=== PATIENT | female | born 1995 | race American Indian/Alaskan Native ===

== ENCOUNTER 2019-12-17 09:05 | Emergency (ER) | payer MEDICAID ==
[2019-12-17 09:12] VITALS: BP 119/63
== END 2019-12-17 11:34 | disposition left against medical advice (07) ==
LOC: ED 09:05
DX: K08.89 Other specified disorders of teeth and supporting structures (principal); K13.79 Other lesions of oral mucosa; Z53.21 Procedure and treatment not carried out due to patient leaving prior to being seen by health care provider

== ENCOUNTER 2020-02-06 18:10 | Emergency (ER) | payer MEDICAID ==
[2020-02-06 14:18] LABS: Basophils % (Auto) 0.2 % (0.0-1.8); Eosinophils % (Auto) 0.1 % (0.0-4.3); Hematocrit 33.7 % (30.3-42.9); Hemoglobin 11.6 gm/dl (10.1-14.3); Lymphocytes % (Auto) 13.4 % (13.4-35.0); Mean Corpuscular HGB Conc 34 % (30-34); Mean Corpuscular Volume 93 fl (79-97); Monocytes # (Auto) 0.4 K/mm3 (0.0-0.8); Monocytes % (Auto) 5.4 % (0.0-7.3); Platelet Count 188 K/mm3 (140-440); Red Blood Count 3.63 M/mm3 (3.65-5.03); Red Cell Distribution Width 14.2 % (13.2-15.2)
[2020-02-06 14:39] LABS: Blood Urea Nitrogen 6 mg/dL (7-17); Calcium 9.3 mg/dL (8.4-10.2); Hemolysis Index 4
[2020-02-06 14:45] LABS: BUN/Creatinine Ratio 15
[2020-02-06 15:02] LABS: Bilirubin,Urine NEG (Negative); Blood,Urine NEG (Negative); Color,Urine Yellow (Yellow); Mucus,Urine 3+ /HPF; Protein,Urine <15 mg/dL mg/dL (Negative); Urobilinogen,Urine < 2.0 mg/dL (<2.0)
--- NOTE | 2020-02-06 16:12 | Emergency Department Report ---
ED General Adult HPI - General Chief complaint: Abdominal Pain Stated complaint: CRAMPING/POSSIBLE PUI?: No Time Seen by Provider: 02/06/20 15:48 Source: patient Mode of arrival: Ambulatory Limitations: No Limitations - History of Present Illness Initial comments: 24-year-old female presenting with chief complaint of abdominal cramping for the past few days. She states that she has not had a cycle since August but states that she is usually irregular. She states taking a test yesterday that is positive. Denies any vaginal bleeding currently. Denies any other associated symptoms. Cramping is mild in nature, no alleviating or exacerbating factors. - Related Data Allergies Allergy/AdvReac Type Severity Reaction Status Date / Time ibuprofen Allergy Swelling Verified 10/28/19 02:49 tramadol Allergy Swelling Verified 10/28/19 02:49 ED Review of Systems ROS: Stated complaint: CRAMPING/POSSIBLE Other details as noted in HPI Comment: All other systems reviewed and negative Gastrointestinal: as per HPI ED Past Medical Hx - Past Medical History Previous Medical History?: No - Surgical History Past Surgical History?: Yes Additional Surgical History: 2 c-sections - Social History Smoking Status: Never Smoker Substance Use Type: None ED Physical Exam - General Limitations: No Limitations General appearance: alert, in no apparent distress - Head Head exam: Present: atraumatic, normocephalic - Eye Eye exam: Present: normal appearance - ENT ENT exam: Present: mucous membranes moist - Neck Neck exam: Present: normal inspection - Respiratory Respiratory exam: Present: normal lung sounds bilaterally. Absent: respiratory distress - Cardiovascular Cardiovascular Exam: Present: regular rate, normal rhythm. Absent: systolic murmur, diastolic murmur, rubs, gallop - GI/Abdominal GI/Abdominal exam: Present: soft, distended (Gravid), normal bowel sounds. Absent: tenderness, guarding, rebound - Extremities Exam Extremities exam: Present: normal inspection - Back Exam Back exam: Present: normal inspection - Neurological Exam Neurological exam: Present: alert, oriented X3 - Psychiatric Psychiatric exam: Present: normal affect, normal mood - Skin Skin exam: Present: warm, dry, intact, normal color. Absent: rash ED Course Vital Signs 02/06/20 02/06/20 02/06/20 13:59 16:11 17:02 Temperature 98.6 F 97.5 F L 98.3 F Pulse Rate 69 63 63 Respiratory 20 14 14 Rate Blood Pressure 119/61 120/54 Blood Pressure 120/54 [Left] O2 Sat by Pulse 100 100 100 Oximetry ED Medical Decision Making - Lab Data Result diagrams: 02/06/20 14:06 02/06/20 14:06 - Radiology Data 20-week without acute abnormalities - Medical Decision Making Patient presenting with abdominal cramping and possible . On my exam the abdomen is gravid above the umbilicus, rapid bedside ultrasound was performed showing advanced greater than 20 weeks with normal heart tones. I consulted with labor and delivery who request a formal ultrasound prior to transfer there. Ultrasound does show a 20+ week , patient was to be transferred to L&D but got a phone call about her emergency at home and had to leave. She does understand the risks of leaving and left AMA and signed paperwork. All risks were discussed. - Differential Diagnosis , labor, UTI Critical care attestation.: If time is entered above; I have spent that time in minutes in the direct care of this critically ill patient, excluding procedure time. ED Disposition Clinical Impression: Second trimester Disposition: [id number] LEFT AGAINST MED ADVICE Is pt being admited?: No Condition: Stable Instructions: Abdominal Pain (ED) Referrals: PRIMARY CARE, [Primary Care Provider] - 3-5 Days Forms: AMA Form Time of Disposition: 18:20
[2020-02-06 17:02] VITALS: BP 120/54
--- NOTE | 2020-02-06 18:04 | Ultrasound Report ---
ULTRASOUND OBSTETRIC COMPLETE INDICATION / CLINICAL INFORMATION: Pelvic pain, spotting. Clinical Gestational Age (GA) in weeks.days: 26.1 TECHNIQUE: Transabdominal and Transvaginal. COMPARISON: None available. FINDINGS: NUMBER: Single PRESENTATION: transverse PLACENTA: posterofundal and free of the os. MATERNAL ADNEXA: No significant abnormality. AMNIOTIC FLUID VOLUME: normal AMNIOTIC FLUID INDEX (NOVA) in cm (if measured): Not measured. ANATOMY: organs (including the bladder, stomach, kidneys, heart, umbilical cord, diaphragm, cord inserti on, spine and intracranial structures) are visualized and show no significant abnormality with the fo llowing exception(s): None. MEASUREMENTS: - Biparietal Diameter = 4.6 cm = 20.0 weeks.days - Head Circumference = 17.6 cm = 20.0 weeks.days - Abdominal Circumference = 15.4 cm = 20.4 weeks.days - Femur Length = 3.3 cm = 20.2 weeks.days - Estimated Weight (in grams, if calculated): 352 g - Heart Rate (beats per minute): 152 ADDITIONAL FINDINGS: None. PERCENTILE ESTIMATED WEIGHT (if calculated): Not calculated. AVERAGE ULTRASOUND AGE (AUA) in weeks.days = 20.2 IMPRESSION: 1. Single intrauterine with AUA of 20.2 weeks.days 2. No significant sonographic abnormality. Signer Name: Milton Walls MD Signed: 02/06/2020 5:59 PM Workstation Name: [id number]
== END 2020-02-06 18:14 | disposition left against medical advice (07) ==
LOC: LDOR 18:10
DX: O26.852 Spotting complicating pregnancy, second trimester (principal); O26.892 Other specified pregnancy related conditions, second trimester; R10.2 Pelvic and perineal pain; Z3A.20 20 weeks gestation of pregnancy
CPT/HCPCS: 36415; 76805; 76817; 80048; 81001; 84702; 85025

== ENCOUNTER 2020-03-31 02:37 | Emergency (ER) | payer MEDICAID ==
[2020-03-31 02:58] VITALS: BP 110/64
== END 2020-03-31 08:47 | disposition left against medical advice (07) ==
LOC: ED 02:37
DX: K08.89 Other specified disorders of teeth and supporting structures (principal); Z53.21 Procedure and treatment not carried out due to patient leaving prior to being seen by health care provider

== ENCOUNTER 2020-04-03 13:46 | Outpatient (CLI) | payer MEDICAID ==
[2020-04-03 14:11] VITALS: BP 121/67
[2020-04-03] MEDS ORDERED: LACTATED RINGERS 1,000 ML IV ONE (14:26)
[2020-04-03] MEDS ORDERED: LACTATED RINGERS 1,000 ML ONE (14:35)
[2020-04-03] MEDS: TERBUTALINE 1 MG/1 ML INJ SUB-Q SCH ×2 (15:21→15:56)
--- NOTE | 2020-04-03 15:42 | Ultrasound Report ---
US OB follow up INDICATION / CLINICAL INFORMATION: bpp/joan/ gestational age. placenta. COMPARISON: 02/06/2020 FINDINGS: AMNIOTIC FLUID INDEX (cm) = 20.5 cm PRESENTATION: Cephalic. Examination is not tailored to evaluate detailed anatomy. MEASUREMENTS: - Biparietal Diameter = 6.93 cm = 27 weeks 6 days - Head Circumference = 26.0 cm = 28 weeks 2 days - Abdominal Circumference = 23.6 cm = 27 weeks 6 days - Femur Length = 5.1 cm = 27 weeks 3 days Total AUA: 27 weeks 6 days - Estimated Weight (in grams, if calculated): 1124 g +/- 166 g - Heart Rate (beats per minute): 143 Anterior placenta is within normal limits. IMPRESSION: 1. Single intrauterine with AUA of 27 weeks 6 days. 2. No significant sonographic abnormality. Signer Name: Home Celis MD Signed: 04/03/2020 3:38 PM Workstation Name: [id number]
[2020-04-03] MEDS ORDERED: LACTATED RINGERS 1,000 ML IV SCH (16:00)
[2020-04-03] MEDS ORDERED: diphenhydrAMINE 50 MG/ML VIAL IM ONE (16:00)
[2020-04-03] MEDS ORDERED: ONDANSETRON 4 MG/2 ML INJ IV PRN (16:28)
[2020-04-03] MEDS ORDERED: MORPHINE 10 MG/1 ML INJ IM ONE (16:49)
== END 2020-04-03 18:00 | disposition home or self-care (01) ==
LOC: TRG 13:46 → APU 13:46 → TRG 18:00
PROVIDERS: ATTEND Obstetrics & Gynecology
DX: O62.9 Abnormality of forces of labor, unspecified (principal); J45.909 Unspecified asthma, uncomplicated; F53.0 Postpartum depression; Z3A.31 31 weeks gestation of pregnancy
CPT/HCPCS: 59025; 76816; 96361; 96365; 96366; 96372; J1200; J2270; J2405; J3105; J7120; 96360

== ENCOUNTER 2020-04-23 10:32 | Outpatient (CLI) | payer MEDICAID ==
[2020-04-23] MEDS ORDERED: LACTATED RINGERS 1,000 ML ONE (11:05)
[2020-04-23] MEDS ORDERED: TERBUTALINE 1 MG/1 ML INJ ONE (11:06)
[2020-04-23] MEDS ORDERED: LACTATED RINGERS 1,000 ML IV SCH ×2 (11:15→13:00)
[2020-04-23 11:38] LABS: Bilirubin,Urine NEG (Negative); Blood,Urine NEG (Negative); Color,Urine Yellow (Yellow); Mucus,Urine FEW /HPF; Urobilinogen,Urine < 2.0 mg/dL (<2.0)
[2020-04-23] MEDS ORDERED: TERBUTALINE 1 MG/1 ML INJ SUB-Q SCH (12:00)
[2020-04-23 12:10] VITALS: BP 134/87
[2020-04-23] MEDS ORDERED: ACETAMINOPHEN 325 MG TAB PO PRN ×2 (12:34→12:48)
[2020-04-23] MEDS ORDERED: DOCUSATE SODIUM 100 MG CAP PO PRN (12:34)
[2020-04-23] MEDS ORDERED: MAGNESIUM HYDROXIDE (MOM) ORAL LIQD UDC PO PRN (12:34)
[2020-04-23] MEDS ORDERED: ONDANSETRON 4 MG/2 ML INJ IV PRN (12:34)
[2020-04-23] MEDS ORDERED: ALUM-MAG HYDROXIDE-SIMETHICONE 200-200-20MG/5ML ORAL LIQD 30 ML PO PRN (12:34)
--- NOTE | 2020-04-23 12:43 | History and Physical Report ---
History of Present Illness Date of examination: 04/23/20 (Pt having ctxs and abdominal pain) Date of admission: 04/23/2020 Chief complaint: My stomach hurts. History of present illness: Pt presents to triage with c/o abdominal pain. States that she was told that she is 34-36 weeks gestation. By u/s performed on 02/06/2020 pt is actually 31.2 days today. On 02/06/2020 by u/s she was 20.2 wks gestation. Past History Past Medical History: no pertinent history Past Surgical History: section ( X 2.) Family/Genetic History: none Social history: no significant social history - Obstetrical History Expected Date of Delivery: 06/23/20 Actual Gestation: 31 Week(s) 2 Day(s) : 3 Para: 2 Hx # Term Pregnancies: 2 Number of Pregnancies: 0 Spontaneous Abortions: 0 Induced : 0 Number of Living Children: 2 Medications and Allergies Allergies Allergy/AdvReac Type Severity Reaction Status Date / Time codeine Allergy Swelling Verified 03/31/20 03:06 ibuprofen Allergy Swelling Verified 10/28/19 02:49 tramadol Allergy Swelling Verified 10/28/19 02:49 Latex, Natural Rubber AdvReac Anaphylaxis Verified 04/23/20 12:57 Active Meds: Active Medications Acetaminophen (Acetaminophen 500 Mg Tab) 1,000 mg PO ONCE ONE Stop: 04/23/20 13:01 Acetaminophen (Acetaminophen 325 Mg Tab) 650 mg PO Q4H PRN PRN Reason: Pain MILD(1-3)/Fever >100.5/FLORES Al Hydrox/Mg Hydrox/Simethicone (Alum-Mag Hydroxide-Simethicone 628-579-29tt/5ml Oral Liqd 30 Ml) 30 ml PO Q6H PRN PRN Reason: Indigestion Betamethasone Acet/Betameth SodPhos (Betamet Acet/Betamet Na Ph 6 Mg/Ml Inj 5 Ml Mdv) 12 mg IM Q24HR SINGH Stop: 04/24/20 10:01 Docusate Sodium (Docusate Sodium 100 Mg Cap) 100 mg PO Q12H PRN PRN Reason: Constipation Lactated Ringer's (Lactated Ringers) 1,000 mls @ 125 mls/hr IV DIRECT SINGH Lactated Ringer's (Lactated Ringers) 1,000 mls @ 125 mls/hr IV DIRECT [facility] Magnesium Hydroxide (Magnesium Hydroxide (Mom) Oral Liqd Udc) 30 ml PO QHS PRN PRN Reason: Laxative Effect Multivitamins/Iron/Calcium ( [id number]-Mb Fumarate-Folic Acid Vit Tab) 1 each PO QDAY [facility] Ondansetron HCl (Ondansetron 4 Mg/2 Ml Inj) 4 mg IV Q6H PRN PRN Reason: Nausea And Vomiting Terbutaline Sulfate (Terbutaline 1 Mg/1 Ml Inj) 0.25 mg SUB-Q Q20MIN [facility] Stop: 04/25/20 12:01 Review of Systems All systems: negative - Vital Signs Vital signs: Vital Signs Pulse Pulse Ox 62 99 04/23/20 10:54 04/23/20 10:54 Temp Pulse Resp BP Pulse Ox 98.2 F 61 20 134/87 98 04/23/20 12:26 04/23/20 12:37 04/23/20 12:26 04/23/20 12:26 04/23/20 12:37 - Physical Exam Breasts: Positive: deferred Cardiovascular: Regular rate Lungs: Positive: Normal air movement Abdomen: Positive: normal appearance, soft Genitourinary (Female): Positive: normal external genitalia, normal perenium Vulva: both: normal Vagina: Positive: normal moisture. Negative: discharge Cervix: Negative: lesion, discharge Uterus: Positive: normal size, normal contour Adnexa: both: normal Anus/Rectum: Positive: normal perianal skin, heme negative. Negative: rectal mass, hemorrhoids Extremities: Positive: normal Deep Tendon Reflex Grade: Normal +2 - Obstetrical FHR: category 1 Uterine Contraction Monitor Mode: External Cervical Dilatation: 1 (1 cm per triage nurse) Uterine Contraction Pattern: Regular Uterine Tone Measurement Phase: Resting Uterine Contraction Intensity: Mild Results Abnormal lab results 04/23/20 Range/Units Unknown Ur Specific [place] 1.044 H (1.003-1.030) U Epithel Cells (Auto) 67.0 H (0-13.0) /HPF All other labs normal. labs drawn on admission. Assessment and Plan A: 24 y.o. @ 31.2 wks, based off u/s completed on 02/06/2020 in the ER. No care. P: Admit to labor and delivery for labor. Start magnesium infusion for neuro-protection. Clear liquid diet. Steroids for lung maturity. IV fluid bolus for hydration. - Patient Problems (1) 31 to 32 weeks gestation of Onset Date: ~04/23/20 Current Visit: Yes Status: Acute Plan to address problem: Continuous EFM ordered. (2) No care in current Onset Date: ~04/23/20 Current Visit: Yes Status: Acute Plan to address problem: Case management order placed d/t no care. (3) labor in third trimester Onset Date: ~04/23/20 Current Visit: Yes Status: Acute (4) Previous section Current Visit: Yes Status: Acute Plan to address problem: Monitor for s/sx of worsening labor. Will be repeat if change in labor status.
[2020-04-23] MEDS ORDERED: BUTORPHANOL 2 MG/1 ML INJ IV ONE ×2 (12:45)
[2020-04-23] MEDS ORDERED: ACETAMINOPHEN 500 MG TAB PO ONE (13:00)
[2020-04-23] MEDS ORDERED: MAGNESIUM SULFATE 4 GM/100 ML BAG IV ONE (13:42)
[2020-04-23] MEDS ORDERED: MAGNESIUM SULFATE 40GM/1000ML 40 GM/1,000 ML BAG IV SCH (14:00)
[2020-04-23] MEDS ORDERED: BETAMET ACET/BETAMET NA PH 6 MG/ML INJ 5 ML MDV IM SCH (14:00)
--- NOTE | 2020-04-23 14:37 | Event Note ---
Date: 04/23/20 (Pt eloped. ) Received a call from Aaliyah ROMEO stating that patient had to leave because she had no nurse sitter for her children. Pt has just received a dose of IV pain medication per the RN. When RN discussed with patient that she could not leave at this time d/t needing monitoring after pain medication, she stated once again that she had to leave because she needed to see about her other children. Came to speak with the patient and found the room empty. Charge nurse stated that the patient had walked out before she had a chance to go and speak with the patient. Updated Dr. Cabrera on patient elopement.
[2020-04-23 16:18] LABS: Amphetamine Screen,Urine Negative; Benzodiazepines Screen,Urine Negative; Cocaine Screen,Urine Negative; Methadone Screen,Urine Negative
[2020-04-23 16:43] LABS: Cannabinoid Screen,Urine Positive; Opiate Screen,Urine Positive
[2020-04-24] MEDS ORDERED: PRENATAL VIT27-FE FUMARATE-FOLIC ACID VIT TAB PO SCH (10:00)
== END 2020-04-23 15:09 | disposition left against medical advice (07) ==
LOC: TRG 10:32 → APU 10:33 → LD 15:06 → TRG 15:09
PROVIDERS: ATTEND Obstetrics & Gynecology
DX: O62.9 Abnormality of forces of labor, unspecified (principal); O99.513 Diseases of the respiratory system complicating pregnancy, third trimester; J45.909 Unspecified asthma, uncomplicated; Z3A.34 34 weeks gestation of pregnancy
CPT/HCPCS: 80307; 81001; 96361; 96372; 96374; J0595; J0702; J7120

== ENCOUNTER 2020-04-26 17:34 | Emergency (ER) | payer MEDICAID ==
[2020-04-26 17:56] VITALS: BP 121/63
--- NOTE | 2020-04-26 18:34 | Emergency Department Report ---
ED ENT HPI - General Chief complaint: Dental/Oral Stated complaint: TOOTH PAIN,CHEST PAIN Time Seen by Provider: 04/26/20 18:27 Source: patient Mode of arrival: Ambulatory Limitations: No Limitations - History of Present Illness Initial comments: Patient is a 24-year-old female presents emergency room with complaints of left lower dental pain that began 5 days ago. She states that she last saw a dentist a few months ago and was advised that she needs to have her wisdom teeth removed. She is currently 32 weeks and states that she is going to a clinic for [facility] care. She denies any fever, chills, vomiting, facial swelling, difficulty swallowing, difficulty breathing. No past medical history. Allergy to codeine, ibuprofen, tramadol, latex, natural rubber. - Related Data Previous Rx's Medication Instructions Recorded Last Taken Type Chlorhexidine Mouthwash [Peridex] 15 ml MM BID #1 bottle 04/26/20 Unknown Rx Penicillin Vk [Veetids TAB] 500 mg PO QID 7 Days #56 tablet 04/26/20 Unknown Rx Allergies Allergy/AdvReac Type Severity Reaction Status Date / Time codeine Allergy Swelling Verified 03/31/20 03:06 ibuprofen Allergy Swelling Verified 04/26/20 17:52 tramadol Allergy Swelling Verified 04/26/20 17:52 Latex, Natural Rubber AdvReac Anaphylaxis Verified 04/26/20 17:52 ED Dental HPI - General Chief complaint: Dental/Oral Stated complaint: TOOTH PAIN,CHEST PAIN Time Seen by Provider: 04/26/20 18:27 Source: patient Mode of arrival: Ambulatory Limitations: No Limitations - Related Data Previous Rx's Medication Instructions Recorded Last Taken Type Chlorhexidine Mouthwash [Peridex] 15 ml MM BID #1 bottle 04/26/20 Unknown Rx Penicillin Vk [Veetids TAB] 500 mg PO QID 7 Days #56 tablet 04/26/20 Unknown Rx Allergies Allergy/AdvReac Type Severity Reaction Status Date / Time codeine Allergy Swelling Verified 03/31/20 03:06 ibuprofen Allergy Swelling Verified 04/26/20 17:52 tramadol Allergy Swelling Verified 04/26/20 17:52 Latex, Natural Rubber AdvReac Anaphylaxis Verified 04/26/20 17:52 ED Review of Systems ROS: Stated complaint: TOOTH PAIN,CHEST PAIN Other details as noted in HPI Comment: All other systems reviewed and negative ED Past Medical Hx - Past Medical History Previous Medical History?: No Hx Hypertension: No Hx Diabetes: No Hx Deep Vein Thrombosis: No Hx Renal Disease: No Hx Sickle Cell Disease: No Hx Seizures: No Hx Asthma: Yes Hx HIV: No - Surgical History Additional Surgical History: 2 c-sections - Social History Smoking Status: Never Smoker - Medications Home Medications: Home Medications Medication Instructions Recorded Confirmed Last Taken Type Chlorhexidine Mouthwash [Peridex] 15 ml MM BID #1 bottle 04/26/20 Unknown Rx Penicillin Vk [Veetids TAB] 500 mg PO QID 7 Days #56 tablet 04/26/20 Unknown Rx ED Physical Exam - General Limitations: No Limitations General appearance: alert, in no apparent distress - Head Head exam: Present: atraumatic, normocephalic - Eye Eye exam: Present: normal appearance - ENT ENT exam: Present: normal orophraynx, mucous membranes moist, other (there are a couple of dental carries present, there is a left lower impacted wisdom tooth, there is erythema and hypertrophy of the left lower gums, no induration, no fluctuance, no facial edema, uvula is midline, no uvular edema or deviation, no trismus, no muffled voice, no tongue elevation) - Respiratory Respiratory exam: Absent: respiratory distress, accessory muscle use - Neurological Exam Neurological exam: Present: alert, oriented X3 - Psychiatric Psychiatric exam: Present: normal affect, normal mood - Skin Skin exam: Present: warm, dry, intact ED Course Vital Signs 04/26/20 17:55 Temperature 98.0 F Pulse Rate 75 Respiratory 18 Rate Blood Pressure 121/63 O2 Sat by Pulse 98 Oximetry ED Medical Decision Making - Medical Decision Making Patient is a 24-year-old female presents emergency room with complaints of left lower dental pain that began 5 days ago. She states that she last saw a dentist a few months ago and was advised that she needs to have her wisdom teeth removed. She is currently 32 weeks and states that she is going to a clinic for [facility] care. She denies any fever, chills, vomiting, facial swelling, difficulty swallowing, difficulty breathing. No past medical history. Allergy to codeine, ibuprofen, tramadol, latex, natural rubber. vitals are normal. on exam: there are a couple of dental carries present, there is a left lower impacted wisdom tooth, there is erythema and hypertrophy of the left lower gums, no induration, no fluctuance, no facial edema, uvula is midline, no uvular edema or deviation, no trismus, no muffled voice, no tongue elevation. Examination appears consistent with dental caries, impacted wisdom tooth, gingivitis. No signs of dental abscess, facial abscess/cellulitis, [place]. Patient given prescription for penicillin VK and chlorhexidine mouthwash. Advised patient Please take medication as prescribed. May take Tylenol as needed for discomfort. Follow-up with a dentist. Is very importantly follow- up. Return to emergency room for new or worsening symptoms. Critical care attestation.: If time is entered above; I have spent that time in minutes in the direct care of this critically ill patient, excluding procedure time. ED Disposition Clinical Impression: Dental caries, Gingivitis Disposition: TO HOME OR SELFCARE Is pt being admited?: No Does the pt Need Aspirin: No Condition: Stable Additional Instructions: Please take medication as prescribed. May take Tylenol as needed for discomfort. Follow-up with a dentist. Is very importantly follow-up. Return to emergency room for new or worsening symptoms. Prescriptions: Chlorhexidine Mouthwash [Peridex] 15 ml MM BID #1 bottle Penicillin Vk [Veetids TAB] 500 mg PO QID 7 Days #56 tablet Referrals: PRIMARY CARE, [Primary Care Provider] - 2-3 Days [facility] [Outside] - 2-3 Days [facility] [Outside] - 2-3 Days Time of Disposition: 18:37 Print Language: KINYARWANDA
== END 2020-04-26 18:52 | disposition home or self-care (01) ==
LOC: ED 17:34
DX: O99.613 Diseases of the digestive system complicating pregnancy, third trimester (principal); K02.9 Dental caries, unspecified; K05.10 Chronic gingivitis, plaque induced; J45.909 Unspecified asthma, uncomplicated; Z3A.32 32 weeks gestation of pregnancy; Z98.890 Other specified postprocedural states; Z79.2 Long term (current) use of antibiotics; Z79.899 Other long term (current) drug therapy; Z91.040 Latex allergy status; Z88.8 Allergy status to other drugs, medicaments and biological substances
CPT/HCPCS: 99282

== ENCOUNTER 2020-05-07 09:00 | Emergency (ER) | payer MEDICAID ==
[2020-05-07 09:09] VITALS: BP 121/85
[2020-05-07] MEDS ORDERED: oxyCODONE /ACETAMINOPHEN 5-325MG TAB PO ONE (09:19)
[2020-05-07] MEDS ORDERED: ONDANSETRON 4 MG ODT TAB PO ONE (09:19)
[2020-05-07] MEDS ORDERED: MORPHINE 4 MG/1 ML INJ IM ONE (09:19)
--- NOTE | 2020-05-07 09:25 | Emergency Department Report ---
ED Abdominal Pain HPI - General Chief Complaint: Abdominal Pain Stated Complaint: INCISION PAIN PUI?: No Time Seen by Provider: 05/07/20 09:11 Source: patient Mode of arrival: Ambulatory Limitations: No Limitations - History of Present Illness Initial Comments: Chief complaint: I just been hurting. Any pain medicine. The ankles are swelling. HPI this is a 24-year-old female with history of asthma who delivered via C- section on 7 days ago. She is having pain at the incision site. She has used all of her Percocet prescription which helped her postoperative pain. She is unable to follow-up until Sunday. She alerted ibuprofen. She denies headache patient has fever. Denies cough. No shortness of breath. She denies upper abdominal pain. She delivered at 35 weeks. She is stressed because her son is in NICU. MD Complaint: abdominal pain -: Gradual (Since ) Location: suprapubic (At the site of her incision) Severity: severe Severity scale (0 -10): 10 Quality: aching Consistency: constant Improves With: other (Abdominal pain) Worsens With: movement Associated Symptoms: other (Ankle swelling) - Related Data Home Medications Medication Instructions Recorded Confirmed Last Taken One Daily Tablet 1 tab PO DAILY 04/30/20 04/30/20 04/29/20 08:00 1 Previous Rx's Medication Instructions Recorded Last Taken Type Ibuprofen [Motrin] 600 mg PO Q8H PRN #60 tablet 05/01/20 Unknown Rx oxyCODONE /ACETAMINOPHEN [Percocet 1 tab PO Q6HR PRN #20 tablet 05/01/20 Unknown Rx 5/325] oxyCODONE /ACETAMINOPHEN [Percocet 1 tab PO Q6HR PRN #20 tablet 05/07/20 Unknown Rx 5/325] Allergies Allergy/AdvReac Type Severity Reaction Status Date / Time codeine Allergy Swelling Verified 03/31/20 03:06 ibuprofen Allergy Swelling Verified 04/26/20 17:52 tramadol Allergy Swelling Verified 04/26/20 17:52 Latex, Natural Rubber AdvReac Anaphylaxis Verified 04/26/20 17:52 ED Review of Systems ROS: Stated complaint: INCISION PAIN Other details as noted in HPI Comment: All other systems reviewed and negative Constitutional: denies: fever, malaise Respiratory: denies: cough, SOB with exertion Cardiovascular: denies: chest pain Gastrointestinal: abdominal pain. denies: nausea, vomiting ED Past Medical Hx - Past Medical History Previous Medical History?: No Hx Hypertension: No Hx Congestive Heart Failure: No Hx Diabetes: No Hx Deep Vein Thrombosis: No Hx Renal Disease: No Hx Sickle Cell Disease: No Hx Seizures: No Hx Asthma: Yes Hx COPD: No Hx HIV: No - Surgical History Past Surgical History?: Yes Additional Surgical History: 3 c-sections - Social History Smoking Status: Never Smoker - Medications Home Medications: Home Medications Medication Instructions Recorded Confirmed Last Taken Type One Daily Tablet 1 tab PO DAILY 04/30/20 04/30/20 04/29/20 08:00 History 1 Ibuprofen [Motrin] 600 mg PO Q8H PRN #60 tablet 05/01/20 Unknown Rx oxyCODONE /ACETAMINOPHEN [Percocet 1 tab PO Q6HR PRN #20 tablet 05/01/20 Unknown Rx 5/325] oxyCODONE /ACETAMINOPHEN [Percocet 1 tab PO Q6HR PRN #20 tablet 05/07/20 Unknown Rx 5/325] ED Physical Exam - General Limitations: No Limitations General appearance: alert, in no apparent distress, other (Walks gingerly in order to avoid discomfort) - Head Head exam: Present: atraumatic, normocephalic - Eye Eye exam: Present: normal appearance - ENT ENT exam: Present: mucous membranes moist - Neck Neck exam: Present: normal inspection, full ROM - Respiratory Respiratory exam: Present: normal lung sounds bilaterally. Absent: respiratory distress, wheezes, rales, rhonchi - Cardiovascular Cardiovascular Exam: Present: regular rate, normal rhythm, normal heart sounds. Absent: systolic murmur, diastolic murmur, rubs, gallop - GI/Abdominal GI/Abdominal exam: Present: soft, normal bowel sounds, other ( site incision: Clean dry intact Steri-Strips in place no erythema no discharge). Absent: distended, tenderness, guarding, rebound - Extremities Exam Extremities exam: Present: normal inspection, other (No lower extremity edema appreciated) - Back Exam Back exam: Present: normal inspection - Neurological Exam Neurological exam: Present: alert, oriented X3 - Psychiatric Psychiatric exam: Present: normal affect, normal mood - Skin Skin exam: Present: warm, dry, intact, normal color. Absent: rash ED Course Vital Signs 05/07/20 09:05 Temperature 97.9 F Pulse Rate 77 Respiratory 16 Rate Blood Pressure 121/85 [Left] O2 Sat by Pulse 99 Oximetry ED Medical Decision Making - Medical Decision Making 1. Postoperative pain: No indication of wound infection or dehiscence, no evidence of peritonitis. Patient confirms as this is the same type of pain that she had since . I have provided Percocet 20 tablets prescription. She has postoperative follow-up on Sunday. 2. Patient reports bilateral ankle foot swelling. I do not see any significant edema on exam. I encouraged her to walk as often as possible. Also encouraged lower extremity elevation. Critical care attestation.: If time is entered above; I have spent that time in minutes in the direct care of this critically ill patient, excluding procedure time. ED Disposition Clinical Impression: Postoperative pain, History of section, Edema of both lower extremities Disposition: - TO HOME OR SELFCARE Is pt being admited?: No Does the pt Need Aspirin: No Condition: Stable Instructions: Abdominal Pain (ED) Additional Instructions: Please return to the emergency department if you develop fever, drainage, vomiting, orv severe pain. Prescriptions: oxyCODONE /ACETAMINOPHEN [Percocet 5/325] 1 tab PO Q6HR PRN #20 tablet PRN Reason: Pain
== END 2020-05-07 10:04 | disposition home or self-care (01) ==
LOC: ED 09:00
DX: G89.18 Other acute postprocedural pain (principal); R60.9 Edema, unspecified; Z98.890 Other specified postprocedural states; Z79.1 Long term (current) use of non-steroidal anti-inflammatories (NSAID); Z79.899 Other long term (current) drug therapy; Z91.040 Latex allergy status; Z88.8 Allergy status to other drugs, medicaments and biological substances
CPT/HCPCS: 96372; 99282; J2270; Q0162

== ENCOUNTER 2020-05-13 11:55 | Emergency (ER) | payer MEDICAID ==
[2020-05-13 12:07] VITALS: BP 120/66
[2020-05-13] MEDS ORDERED: ONDANSETRON 4 MG/2 ML INJ IV ONE (12:21)
[2020-05-13] MEDS ORDERED: MORPHINE 4 MG/1 ML INJ IV ONE (12:21)
[2020-05-13] MEDS ORDERED: SODIUM CHLORIDE 0.9% 1000 ML 1,000 ML IV ONE (12:21)
[2020-05-13] MEDS ORDERED: KETOROLAC 30 MG/1 ML INJ IV ONE (12:21)
--- NOTE | 2020-05-13 12:58 | Emergency Department Report ---
ED Abdominal Pain HPI - General Chief Complaint: Abdominal Pain Stated Complaint: ABDOMINAL PAIN; C SECTION 04/30 Time Seen by Provider: 05/13/20 12:14 Source: patient Mode of arrival: Ambulatory Limitations: No Limitations - History of Present Illness Initial Comments: Patient is a 24-year-old female who presents emergency room with complaints of pain after a on 04/30/2020. She states this is her third . She states her [facility] group is [facility]. She was evaluated in the emergency department on 05/07/2019 secondary to pain and was evaluated at that time and given a prescription for pain medication. She states that she completed the baking medication but continues to have pain. He states that she saw her [facility] group on 05/10/2019 and saw the roof promenade tile setter at that time and was advised that her C- section incision appeared normal. She states that she has pain at the site and abdominal pain. She states that she still has vaginal bleeding but it has significantly decreased and is now just spotting. She denies any fever, nausea, vomiting, diarrhea, abnormal vaginal discharge. She states that she had a normal bowel movement yesterday, she denies any melena or hematochezia. She denies any urinary symptoms. No past medical history. No allergies to medications. - Related Data Home Medications Medication Instructions Recorded Confirmed Last Taken One Daily Tablet 1 tab PO DAILY 04/30/20 04/30/20 04/29/20 08:00 1 Previous Rx's Medication Instructions Recorded Last Taken Type Ibuprofen [Motrin] 600 mg PO Q8H PRN #60 tablet 05/01/20 Unknown Rx oxyCODONE /ACETAMINOPHEN [Percocet 1 tab PO Q6HR PRN #20 tablet 05/01/20 Unknown Rx 5/325] oxyCODONE /ACETAMINOPHEN [Percocet 1 tab PO Q6HR PRN #20 tablet 05/07/20 Unknown Rx 5/325] Allergies Allergy/AdvReac Type Severity Reaction Status Date / Time codeine Allergy Swelling Verified 05/13/20 12:04 ibuprofen Allergy Swelling Verified 05/13/20 12:04 tramadol Allergy Swelling Verified 05/13/20 12:04 Latex, Natural Rubber AdvReac Anaphylaxis Verified 05/13/20 12:04 ED Review of Systems ROS: Stated complaint: ABDOMINAL PAIN; C SECTION 04/30 Other details as noted in HPI Comment: All other systems reviewed and negative ED Past Medical Hx - Past Medical History Hx Hypertension: No Hx Congestive Heart Failure: No Hx Diabetes: No Hx Deep Vein Thrombosis: No Hx Renal Disease: No Hx Sickle Cell Disease: No Hx Seizures: No Hx Asthma: Yes Hx COPD: No Hx HIV: No - Surgical History Additional Surgical History: 3 c-sections - Social History Smoking Status: Never Smoker - Medications Home Medications: Home Medications Medication Instructions Recorded Confirmed Last Taken Type One Daily Tablet 1 tab PO DAILY 04/30/20 04/30/20 04/29/20 08:00 History 1 Ibuprofen [Motrin] 600 mg PO Q8H PRN #60 tablet 05/01/20 Unknown Rx oxyCODONE /ACETAMINOPHEN [Percocet 1 tab PO Q6HR PRN #20 tablet 05/01/20 Unknown Rx 5/325] oxyCODONE /ACETAMINOPHEN [Percocet 1 tab PO Q6HR PRN #20 tablet 05/07/20 Unknown Rx 5/325] ED Physical Exam - General Limitations: No Limitations General appearance: alert, in no apparent distress - Head Head exam: Present: atraumatic, normocephalic - Eye Eye exam: Present: normal appearance - ENT ENT exam: Present: mucous membranes moist - Respiratory Respiratory exam: Present: normal lung sounds bilaterally. Absent: respiratory distress, wheezes, rales, rhonchi, stridor, chest wall tenderness, accessory muscle use, decreased breath sounds, prolonged expiratory - Cardiovascular Cardiovascular Exam: Present: regular rate, normal rhythm, normal heart sounds. Absent: systolic murmur, diastolic murmur, rubs, gallop - GI/Abdominal GI/Abdominal exam: Present: soft, tenderness (inferior to the umbilicus and overlying the incision site), normal bowel sounds, other (there are steri strips in place overlying a horizontal incision, incision appears clean, dry, intact, no signs of infection no wound dehescience). Absent: distended, guard ing, rebound, rigid - Neurological Exam Neurological exam: Present: alert, oriented X3 - Psychiatric Psychiatric exam: Present: normal affect, normal mood - Skin Skin exam: Present: warm, dry, intact ED Course Vital Signs 05/13/20 05/13/20 05/13/20 12:06 13:08 14:05 Temperature 97.6 F Pulse Rate 75 Respiratory 16 18 18 Rate Blood Pressure 120/66 O2 Sat by Pulse 100 100 Oximetry ED Medical Decision Making - Lab Data Result diagrams: 05/13/20 12:58 05/13/20 12:58 Lab Results 05/13/20 05/13/20 05/13/20 Range/Units 12:32 12:58 12:58 WBC 5.0 (4.5-11.0) K/mm3 RBC 3.35 L (3.65-5.03) M/mm3 Hgb 10.5 (10.1-14.3) gm/dl Hct 31.2 (30.3-42.9) % MCV 93 (79-97) fl MCH 31 (28-32) pg MCHC 34 (30-34) % RDW 13.7 (13.2-15.2) % Plt Count 313 (140-440) K/mm3 Lymph % (Auto) 26.8 (13.4-35.0) % [place] % (Auto) 6.3 (0.0-7.3) % Eos % (Auto) 1.3 (0.0-4.3) % Baso % (Auto) 0.9 (0.0-1.8) % Lymph # (Auto) 1.3 (1.2-5.4) K/mm3 [place] # (Auto) 0.3 (0.0-0.8) K/mm3 Eos # (Auto) 0.1 (0.0-0.4) K/mm3 Baso # (Auto) 0.0 (0.0-0.1) K/mm3 Seg Neutrophils % 64.7 (40.0-70.0) % Seg Neutrophils # 3.2 (1.8-7.7) K/mm3 Sodium 140 (137-145) mmol/L Potassium 3.8 (3.6-5.0) mmol/L Chloride 102.9 (98-107) mmol/L Carbon Dioxide 31 H (22-30) mmol/L Anion Gap 10 mmol/L BUN 5 L (7-17) mg/dL Creatinine 0.5 L (0.6-1.2) mg/dL Estimated GFR > 60 ml/min BUN/Creatinine Ratio 10 % Glucose 82 (65-100) mg/dL Calcium 9.1 (8.4-10.2) mg/dL Total Bilirubin < 0.20 (0.1-1.2) mg/dL AST 10 (5-40) units/L ALT 8 (7-56) units/L Alkaline Phosphatase 55 (35-129) units/L Total Protein 6.5 (6.3-8.2) g/dL Albumin 3.5 L (3.9-5) g/dL Albumin/Globulin Ratio 1.2 % Urine Color Yellow (Yellow) Urine Turbidity Slightly-cloudy (Clear) Urine pH 7.0 (5.0-7.0) Ur Specific [place] 1.012 (1.003-1.030) Urine Protein <15 mg/dl (Negative) mg/dL Urine Glucose (UA) Neg (Negative) mg/dL Urine Ketones Neg (Negative) mg/dL Urine Blood Mod (Negative) Urine Nitrite Neg (Negative) Urine Bilirubin Neg (Negative) Urine Urobilinogen < 2.0 (<2.0) mg/dL Ur Leukocyte Esterase Tr (Negative) Urine WBC (Auto) 4.0 (0.0-6.0) /HPF Urine RBC (Auto) 2.0 (0.0-6.0) /HPF U Epithel Cells (Auto) 19.0 H (0-13.0) /HPF Urine Bacteria (Auto) 1+ (Negative) /HPF Urine Mucus Few /HPF - Radiology Data Radiology results: report reviewed Ordering Physician: VASQUEZ COHEN Date of Service: 05/13/20 Procedure(s): CT abdomen pelvis w con Accession Number(s): [id number] cc: VASQUEZ COHEN CT ABDOMEN AND PELVIS WITH CONTRAST INDICATION: Abdominal pain status post . TECHNIQUE: Axial CT images were obtained through the abdomen and pelvis after 100 cc IV contrast. All CT scans at this location are performed using CT dose reduction for ALARA by means of automated exposure control. COMPARISON: None available. FINDINGS: LOWER CHEST: No significant abnormality. LIVER: No significant abnormality. GALLBLADDER: No significant abnormality. BILE DUCTS: No significant abnormality. PANCREAS: No significant abnormality. SPLEEN: No significant abnormality. ADRENALS: No significant abnormality. RIGHT KIDNEY and URETER: No significant abnormality. LEFT KIDNEY and URETER: No significant abnormality. STOMACH and SMALL BOWEL: No significant abnormality. COLON: No significant abnormality. APPENDIX: Normal PERITONEUM: No free fluid. No free air. No fluid collection. LYMPH NODES: No significant adenopathy. AORTA and ARTERIES: No significant abnormality. IVC and VEINS: No significant abnormality. URINARY BLADDER: No significant abnormality. REPRODUCTIVE ORGANS: Enlarged uterus. ADDITIONAL FINDINGS: None. SKELETAL SYSTEM: No significant abnormality. IMPRESSION: 1. No significant abnormality. Signer Name: Ilia Cotton MD Signed: 05/13/2020 3:06 PM Workstation Name: [email or web address] Transcribed By: TL Dictated By: Ilia Cotton MD Electronically Authenticated By: Ilia Cotton MD Signed Date/Time: 05/13/20 1506 DD/ 1453 TD/TT: - Medical Decision Making Patient is a 24-year-old female who presents emergency room with complaints of pain after a on 04/30/2020. She states this is her third . She states her OB group is [facility]. She was evaluated in the emergency department on 05/07/2019 secondary to pain and was evaluated at that time and given a prescription for pain medication. She states that she completed the baking medication but continues to have pain. He states that she saw her [facility] group on 05/10/2019 and saw the roof promenade tile setter at that time and was advised that her C- section incision appeared normal. She states that she has pain at the site and abdominal pain. She states that she still has vaginal bleeding but it has significantly decreased and is now just spotting. She denies any fever, nausea, vomiting, diarrhea, abnormal vaginal discharge. She states that she had a normal bowel movement yesterday, she denies any melena or hematochezia. She denies any urinary symptoms. No past medical history. No allergies to medications. Vitals are normal. On exam: Abdominal tenderness inferior to the umbilicus and overlying the incision site, there are steri strips in place overlying a horizontal incision, incision appears clean, dry, intact, no signs of infection no wound dehiscence, no peritoneal signs, no guarding, no rebound, normal bowel sounds. CT abdomen pelvis with IV contrast 1. No significant abnormality. Labs are normal. UA without evidence of significant UTI. Patient given medications while in the ED and symptoms improved. Discussed the importance of [facility] follow-up with patient. Patient is requesting more narcotics. I advised patient that we could not write her any more narcotics prescriptions given that she has had 40 tablets of Percocet since 05/03/2020. She verbalized understanding and states that she will take Tylenol. Advised patient May take Tylenol as needed for discomfort. Follow-up with your [facility]. Follow-up with your primary care doctor. Return to emergency room for any new or worsening symptoms. - Differential Diagnosis Postop pain, intra-abdominal bleeding, intra-abdominal abscess, UTI Critical care attestation.: If time is entered above; I have spent that time in minutes in the direct care of this critically ill patient, excluding procedure time. ED Disposition Clinical Impression: Postoperative pain Disposition: DC-01 TO HOME OR SELFCARE Is pt being admited?: No Does the pt Need Aspirin: No Condition: Stable Instructions: Abdominal Pain (ED) Additional Instructions: May take Tylenol as needed for discomfort. Follow-up with your [facility]. Follow- up with your primary care doctor. Return to emergency room for any new or worsening symptoms. Referrals: PRIMARY MD FEDERICO [Primary Care Provider] - 2-3 Days [facility] [Provider Group] - 2-3 Days Time of Disposition: 15:30 Print Language: WELSH
[2020-05-13 13:10] LABS: Bacteria,Urine 1+ /HPF (Negative); Bilirubin,Urine NEG (Negative); Blood,Urine MOD (Negative); Color,Urine Yellow (Yellow); Mucus,Urine FEW /HPF; Protein,Urine <15 mg/dL mg/dL (Negative); Urobilinogen,Urine < 2.0 mg/dL (<2.0)
[2020-05-13 13:19] LABS: Basophils % (Auto) 0.9 % (0.0-1.8); Eosinophils # (Auto) 0.1 K/mm3 (0.0-0.4); Eosinophils % (Auto) 1.3 % (0.0-4.3); Hematocrit 31.2 % (30.3-42.9); Hemoglobin 10.5 gm/dl (10.1-14.3); Lymphocytes # (Auto) 1.3 K/mm3 (1.2-5.4); Lymphocytes % (Auto) 26.8 % (13.4-35.0); Mean Corpuscular HGB Conc 34 % (30-34); Mean Corpuscular Volume 93 fl (79-97); Monocytes # (Auto) 0.3 K/mm3 (0.0-0.8); Monocytes % (Auto) 6.3 % (0.0-7.3); Platelet Count 313 K/mm3 (140-440); Red Blood Count 3.35 M/mm3 (3.65-5.03); Red Cell Distribution Width 13.7 % (13.2-15.2)
[2020-05-13 13:42] LABS: Alanine Aminotransferase 8 units/L (7-56); Albumin 3.5 g/dL (3.9-5); Blood Urea Nitrogen 5 mg/dL (7-17); Calcium 9.1 mg/dL (8.4-10.2); Hemolysis Index 1
[2020-05-13 14:10] LABS: BUN/Creatinine Ratio 10
--- NOTE | 2020-05-13 15:10 | Cat Scan Report ---
CT ABDOMEN AND PELVIS WITH CONTRAST INDICATION: Abdominal pain status post . TECHNIQUE: Axial CT images were obtained through the abdomen and pelvis after 100 cc IV contrast. All CT scans at this location are performed using CT dose reduction for ALARA by means of automated exposure contr ol. COMPARISON: None available. FINDINGS: LOWER CHEST: No significant abnormality. LIVER: No significant abnormality. GALLBLADDER: No significant abnormality. BILE DUCTS: No significant abnormality. PANCREAS: No significant abnormality. SPLEEN: No significant abnormality. ADRENALS: No significant abnormality. RIGHT KIDNEY and URETER: No significant abnormality. LEFT KIDNEY and URETER: No significant abnormality. STOMACH and SMALL BOWEL: No significant abnormality. COLON: No significant abnormality. APPENDIX: Normal PERITONEUM: No free fluid. No free air. No fluid collection. LYMPH NODES: No significant adenopathy. AORTA and ARTERIES: No significant abnormality. IVC and VEINS: No significant abnormality. URINARY BLADDER: No significant abnormality. REPRODUCTIVE ORGANS: Enlarged uterus. ADDITIONAL FINDINGS: None. SKELETAL SYSTEM: No significant abnormality. IMPRESSION: 1. No significant abnormality. Signer Name: Ilia Cotton MD Signed: 05/13/2020 3:06 PM Workstation Name: [email or web address]
== END 2020-05-13 15:40 | disposition home or self-care (01) ==
LOC: ED 11:55
DX: G89.18 Other acute postprocedural pain (principal); J45.909 Unspecified asthma, uncomplicated; Z98.890 Other specified postprocedural states; Z79.1 Long term (current) use of non-steroidal anti-inflammatories (NSAID); Z79.899 Other long term (current) drug therapy; Z88.8 Allergy status to other drugs, medicaments and biological substances
CPT/HCPCS: 36415; 74177; 80053; 81001; 85025; 96361; 96374; 96375; 99284; J1885; J2270; J2405; J7030; Q9967

== ENCOUNTER 2020-07-25 09:18 | Emergency (ER) | payer MEDICAID ==
[2020-07-25 09:25] VITALS: BP 131/52
[2020-07-25] MEDS ORDERED: ONDANSETRON 4 MG ODT TAB PO ONE (10:28)
[2020-07-25] MEDS: HYDROcodone/ACETAMINOPHEN 5-325 MG TAB PO ONE ×2 (10:33→10:47)
--- NOTE | 2020-07-25 10:38 | Emergency Department Report ---
- General Chief complaint: Wound/Laceration Stated complaint: C SECTION SCAR PAIN Time Seen by Provider: 07/25/20 10:28 Source: patient Mode of arrival: Ambulatory Limitations: No Limitations - History of Present Illness Initial comments: Patient is a 25-year-old female who presents emergency room with complaints of pain from her scar. She states that she had her in April. She states that this is her third . She states that she has seen her [facility] for this. She denies any abdominal pain, fever, vaginal pain, vaginal bleeding, urinary symptoms, vaginal discharge, nausea, vomiting, diarrhea. She denies any past medical history. She has an allergy to codeine, ibuprofen, tramadol, latex, rubber. - Related Data Home Medications Medication Instructions Recorded Confirmed Last Taken One Daily Tablet 1 tab PO DAILY 04/30/20 04/30/20 04/29/20 08:00 1 Previous Rx's Medication Instructions Recorded Last Taken Type Ibuprofen [Motrin] 600 mg PO Q8H PRN #60 tablet 05/01/20 Unknown Rx oxyCODONE /ACETAMINOPHEN [Percocet 1 tab PO Q6HR PRN #20 tablet 05/01/20 Unknown Rx 5/325] oxyCODONE /ACETAMINOPHEN [Percocet 1 tab PO Q6HR PRN #20 tablet 05/07/20 Unknown Rx 5/325] Acetaminophen [Tylenol] 650 mg PO Q8HR PRN #20 capsule 07/25/20 Unknown Rx Allergies Allergy/AdvReac Type Severity Reaction Status Date / Time codeine Allergy Swelling Verified 07/25/20 09:21 ibuprofen Allergy Swelling Verified 07/25/20 09:21 tramadol Allergy Swelling Verified 07/25/20 09:21 Latex, Natural Rubber AdvReac Anaphylaxis Verified 07/25/20 09:21 Abscess Boil HPI - HPI Chief Complaint: Wound/Laceration Stated Complaint: C SECTION SCAR PAIN Time Seen by Provider: 07/25/20 10:28 Home Medications: Home Medications Medication Instructions Recorded Confirmed Last Taken One Daily Tablet 1 tab PO DAILY 04/30/20 04/30/20 04/29/20 08:00 1 Previous Rx's Medication Instructions Recorded Last Taken Type Ibuprofen [Motrin] 600 mg PO Q8H PRN #60 tablet 05/01/20 Unknown Rx oxyCODONE /ACETAMINOPHEN [Percocet 1 tab PO Q6HR PRN #20 tablet 05/01/20 Unknown Rx 5/325] oxyCODONE /ACETAMINOPHEN [Percocet 1 tab PO Q6HR PRN #20 tablet 05/07/20 Unknown Rx 5/325] Acetaminophen [Tylenol] 650 mg PO Q8HR PRN #20 capsule 07/25/20 Unknown Rx Allergies/Adverse Reactions: Allergies Allergy/AdvReac Type Severity Reaction Status Date / Time codeine Allergy Swelling Verified 07/25/20 09:21 ibuprofen Allergy Swelling Verified 07/25/20 09:21 tramadol Allergy Swelling Verified 07/25/20 09:21 Latex, Natural Rubber AdvReac Anaphylaxis Verified 07/25/20 09:21 ED Review of Systems ROS: Stated complaint: C SECTION SCAR PAIN Other details as noted in HPI Comment: All other systems reviewed and negative ED Past Medical Hx - Past Medical History Hx Hypertension: No Hx Congestive Heart Failure: No Hx Diabetes: No Hx Deep Vein Thrombosis: No Hx Renal Disease: No Hx Sickle Cell Disease: No Hx Seizures: No Hx Asthma: Yes Hx COPD: No Hx HIV: No - Surgical History Additional Surgical History: 3 c-sections - Social History Smoking Status: Never Smoker Substance Use Type: None - Medications Home Medications: Home Medications Medication Instructions Recorded Confirmed Last Taken Type One Daily Tablet 1 tab PO DAILY 04/30/20 04/30/20 04/29/20 08:00 History 1 Ibuprofen [Motrin] 600 mg PO Q8H PRN #60 tablet 05/01/20 Unknown Rx oxyCODONE /ACETAMINOPHEN [Percocet 1 tab PO Q6HR PRN #20 tablet 05/01/20 Unknown Rx 5/325] oxyCODONE /ACETAMINOPHEN [Percocet 1 tab PO Q6HR PRN #20 tablet 05/07/20 Unknown Rx 5/325] Acetaminophen [Tylenol] 650 mg PO Q8HR PRN #20 capsule 07/25/20 Unknown Rx ED Physical Exam - General Limitations: No Limitations General appearance: alert, in no apparent distress - Head Head exam: Present: atraumatic, normocephalic - Eye Eye exam: Present: normal appearance - ENT ENT exam: Present: mucous membranes moist - Respiratory Respiratory exam: Present: normal lung sounds bilaterally. Absent: respiratory distress, wheezes, rales, rhonchi, stridor, chest wall tenderness, accessory muscle use, decreased breath sounds, prolonged expiratory - Cardiovascular Cardiovascular Exam: Present: regular rate, normal rhythm, normal heart sounds. Absent: systolic murmur, diastolic murmur, rubs, gallop - GI/Abdominal GI/Abdominal exam: Present: soft, normal bowel sounds, other (there is a horizontal lower incision which appears clean, dry, intact, no wound dehiscence, no erythema, no induration, no drainage, there is palpable tissue likely representing scar tissue). Absent: distended, tenderness, guarding, rebound, rigid ED Course Vital Signs 07/25/20 07/25/20 09:21 11:08 Temperature 97.9 F Pulse Rate 76 Respiratory 18 18 Rate Blood Pressure 131/52 O2 Sat by Pulse 100 Oximetry ED Medical Decision Making - Medical Decision Making Patient is a 25-year-old female who presents emergency room with complaints of pain from her scar. She states that she had her in April. She states that this is her third . She states that she has seen her [employer] [employer] for this. She denies any abdominal pain, fever, vaginal pain, vaginal bleeding, urinary symptoms, vaginal discharge, nausea, vomiting, diarrhea. She denies any past medical history. She has an allergy to codeine, ibuprofen, tramadol, latex, rubber. Vitals are normal. On exam:there is a horizontal lower incision which appears clean, dry, intact, no wound dehiscence, no erythema, no induration, no drainage, there is palpable tissue likely representing scar tissue. Examination appears consistent with scar tissue likely causing pain at site, there is no wound dehiscence, there is no signs of infection or abscess, site appears clean, dry, intact, she is not having any abdominal pain, there is no abdominal tenderness on exam. Patient given pain medication while in the emergency department. Patient given prescription for Tylenol. Advised patient Please follow-up with your [facility]. Please follow-up with a primary care doctor. Please take medication as prescribed as needed. May alternate between ice and heat. Return to emergency room immediately if you begin experiencing any new or worsening symptoms including but not limited to worsening pain, swelling, redness, drainage, opening of incision, vomiting, fever, heavy bleeding. - Differential Diagnosis Scar tissue, postop pain, skin infection Critical care attestation.: If time is entered above; I have spent that time in minutes in the direct care of this critically ill patient, excluding procedure time. ED Disposition Clinical Impression: Incisional pain Disposition: DC- TO HOME OR SELFCARE Is pt being admited?: No Does the pt Need Aspirin: No Condition: Stable Additional Instructions: Please follow-up with your [facility] [employer]. Please follow-up with a primary care doctor. Please take medication as prescribed as needed. May alternate between ice and heat. Return to emergency room immediately if you begin experiencing any new o r worsening symptoms including but not limited to worsening pain, swelling, redness, drainage, opening of incision, vomiting, fever, heavy bleeding. Prescriptions: Acetaminophen [Tylenol] 650 mg PO Q8HR PRN #20 capsule PRN Reason: pain Referrals: PRIMARY CARE,MD [Primary Care Provider] - 2-3 Days your, [employer] [Other] - 2-3 Days Time of Disposition: 10:38 Print Language: [place]
[2020-07-25] MEDS ORDERED: HYDROcodone/ACETAMINOPHEN 5-325 MG TAB PO ONE (11:03)
== END 2020-07-25 11:10 | disposition home or self-care (01) ==
LOC: ED 09:18
DX: G89.18 Other acute postprocedural pain (principal); J45.909 Unspecified asthma, uncomplicated; Z98.890 Other specified postprocedural states; Z79.1 Long term (current) use of non-steroidal anti-inflammatories (NSAID); Z79.899 Other long term (current) drug therapy; Z91.040 Latex allergy status; Z88.8 Allergy status to other drugs, medicaments and biological substances
CPT/HCPCS: 99282; Q0162

== ENCOUNTER 2020-09-02 02:55 | Emergency (ER) | payer MEDICAID ==
--- NOTE | 2020-09-02 03:52 | Emergency Department Report ---
ED General Adult HPI - General Chief complaint: Arrhythmia/Palpitations Stated complaint: CHEST PAIN Time Seen by Provider: 09/02/20 03:50 Source: patient Mode of arrival: Ambulatory Limitations: No Limitations - History of Present Illness Initial comments: Patient is 25-year-old female with no significant past medical history. Patient presented to the ER stating that her friend gave pain pill and since she took it she started having palpitation and felt her heart rate is not working well. Patient denied any chest pain or shortness of breath. Patient denied any alcohol. No fever or chills. - Related Data Home Medications Medication Instructions Recorded Confirmed Last Taken One Daily Tablet 1 tab PO DAILY 04/30/20 04/30/20 04/29/20 08:00 1 Previous Rx's Medication Instructions Recorded Last Taken Type Ibuprofen [Motrin] 600 mg PO Q8H PRN #60 tablet 05/01/20 Unknown Rx oxyCODONE /ACETAMINOPHEN [Percocet 1 tab PO Q6HR PRN #20 tablet 05/01/20 Unknown Rx 5/325] oxyCODONE /ACETAMINOPHEN [Percocet 1 tab PO Q6HR PRN #20 tablet 05/07/20 Unknown Rx 5/325] Acetaminophen [Tylenol] 650 mg PO Q8HR PRN #20 capsule 07/25/20 Unknown Rx Allergies Allergy/AdvReac Type Severity Reaction Status Date / Time codeine Allergy Swelling Verified 07/25/20 09:21 ibuprofen Allergy Swelling Verified 07/25/20 09:21 tramadol Allergy Swelling Verified 07/25/20 09:21 Latex, Natural Rubber AdvReac Anaphylaxis Verified 07/25/20 09:21 ED Review of Systems ROS: Stated complaint: CHEST PAIN Other details as noted in HPI Comment: All other systems reviewed and negative Constitutional: denies: chills, fever Respiratory: denies: cough Cardiovascular: palpitations. denies: chest pain Gastrointestinal: denies: abdominal pain, nausea, vomiting Psychiatric: anxiety. denies: depression, auditory hallucinations, visual ochoa ucinations, homicidal thoughts ED Past Medical Hx - Past Medical History Previous Medical History?: Yes Hx Hypertension: No Hx Congestive Heart Failure: No Hx Diabetes: No Hx Deep Vein Thrombosis: No Hx Renal Disease: No Hx Sickle Cell Disease: No Hx Seizures: No Hx Asthma: Yes Hx COPD: No Hx HIV: No - Surgical History Past Surgical History?: Yes Additional Surgical History: 3 c-sections - Social History Smoking Status: Current Every Day Smoker Substance Use Type: None - Medications Home Medications: Home Medications Medication Instructions Recorded Confirmed Last Taken Type One Daily Tablet 1 tab PO DAILY 04/30/20 04/30/20 04/29/20 08:00 History 1 Ibuprofen [Motrin] 600 mg PO Q8H PRN #60 tablet 05/01/20 Unknown Rx oxyCODONE /ACETAMINOPHEN [Percocet 1 tab PO Q6HR PRN #20 tablet 05/01/20 Unknown Rx 5/325] oxyCODONE /ACETAMINOPHEN [Percocet 1 tab PO Q6HR PRN #20 tablet 05/07/20 Unknown Rx 5/325] Acetaminophen [Tylenol] 650 mg PO Q8HR PRN #20 capsule 07/25/20 Unknown Rx ED Physical Exam - General Limitations: No Limitations General appearance: alert, in no apparent distress, anxious - Head Head exam: Present: atraumatic, normocephalic, normal inspection - Eye Eye exam: Present: normal appearance - ENT ENT exam: Present: normal exam, normal orophraynx, mucous membranes moist - Neck Neck exam: Present: normal inspection - Respiratory Respiratory exam: Present: normal lung sounds bilaterally - Cardiovascular Cardiovascular Exam: Present: normal rhythm, tachycardia, normal heart sounds - GI/Abdominal GI/Abdominal exam: Present: soft, normal bowel sounds. Absent: distended, tend erness, guarding, rebound, rigid - Extremities Exam Extremities exam: Present: normal inspection, full ROM, normal capillary refill - Back Exam Back exam: Present: normal inspection, full ROM - Neurological Exam Neurological exam: Present: alert, oriented X3, CN II-XII intact - Psychiatric Psychiatric exam: Present: anxious - Skin Skin exam: Present: dry, intact, normal color ED Course Vital Signs 09/02/20 09/02/20 03:20 04:03 Temperature 98.8 F Pulse Rate 107 H Respiratory 18 20 Rate Blood Pressure 132/79 O2 Sat by Pulse 100 Oximetry ED Medical Decision Making - Lab Data Result diagrams: 09/02/20 05:03 - EKG Data -: EKG Interpreted by Me EKG shows normal: sinus rhythm Rate: tachycardia - EKG Data Interpretation: no acute changes - Medical Decision Making Patient is 25-year-old female with no significant past medical history. Patient presented to the ER stating that her friend gave pain pill and since she took it she started having palpitation and felt her heart rate is not working well. Patient denied any chest pain or shortness of breath. Patient denied any alcohol. No fever or chills. EKG shows sinus tachycardia. No other abnormalities. Labs reviewed and is unremarkable. Patient counseled about taking medication that does not belong to her. Patient advised to follow-up with her primary doctor in the next 2 to 3 days and to return to the ER if she have any new symptoms. Critical care attestation.: If time is entered above; I have spent that time in minutes in the direct care of this critically ill patient, excluding procedure time. ED Disposition Clinical Impression: Palpitation, Substance abuse Disposition: DC-01 TO HOME OR SELFCARE Is pt being admited?: No Condition: Stable Instructions: Palpitations, Substance Use Disorder Referrals: PRIMARY CARE, [Primary Care Provider] - 3-5 Days
[2020-09-02 04:13] LABS: HCG Qualitative,Urine Negative (Negative)
[2020-09-02 04:15] LABS: Amphetamine Screen,Urine Negative; Benzodiazepines Screen,Urine Negative; Cocaine Screen,Urine Negative; Methadone Screen,Urine Negative; Opiate Screen,Urine Negative
[2020-09-02 04:39] LABS: Cannabinoid Screen,Urine Positive
[2020-09-02 05:16] LABS: Basophils % (Auto) 0.4 % (0.0-1.8); Eosinophils # (Auto) 0.1 K/mm3 (0.0-0.4); Eosinophils % (Auto) 0.7 % (0.0-4.3); Hematocrit 35.3 % (30.3-42.9); Hemoglobin 11.8 gm/dl (10.1-14.3); Lymphocytes # (Auto) 0.7 K/mm3 (1.2-5.4); Lymphocytes % (Auto) 10.3 % (13.4-35.0); Mean Corpuscular HGB Conc 33 % (30-34); Mean Corpuscular Volume 90 fl (79-97); Monocytes # (Auto) 0.6 K/mm3 (0.0-0.8); Monocytes % (Auto) 8.5 % (0.0-7.3); Platelet Count 205 K/mm3 (140-440); Red Blood Count 3.91 M/mm3 (3.65-5.03); Red Cell Distribution Width 14.1 % (13.2-15.2)
[2020-09-02 05:37] LABS: Blood Urea Nitrogen 5 mg/dL (7-17); Calcium 9.2 mg/dL (8.4-10.2); Hemolysis Index 4
[2020-09-02 05:51] LABS: BUN/Creatinine Ratio 8
[2020-09-02 06:02] VITALS: BP 112/75
--- NOTE | 2020-09-02 10:54 | Electrocardiograph Report ---
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
== END 2020-09-02 05:15 | disposition home or self-care (01) ==
LOC: ED 02:55
DX: R00.2 Palpitations (principal); F19.10 Other psychoactive substance abuse, uncomplicated; J45.909 Unspecified asthma, uncomplicated; Z98.890 Other specified postprocedural states; F17.200 Nicotine dependence, unspecified, uncomplicated; Z79.899 Other long term (current) drug therapy; Z91.040 Latex allergy status; Z88.8 Allergy status to other drugs, medicaments and biological substances
CPT/HCPCS: 36415; 80048; 80307; 81025; 84484; 85025; 93005

== ENCOUNTER 2020-09-03 04:40 | Emergency (ER) | payer MEDICAID ==
[2020-09-03 04:51] VITALS: BP 121/73
--- NOTE | 2020-09-03 13:59 | Electrocardiograph Report ---
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
== END 2020-09-03 04:45 | disposition left against medical advice (07) ==
LOC: ED 04:40
DX: R00.0 Tachycardia, unspecified (principal); Z53.21 Procedure and treatment not carried out due to patient leaving prior to being seen by health care provider
CPT/HCPCS: 93005

== ENCOUNTER 2020-09-04 23:07 | Emergency (ER) | payer MEDICAID | END 2020-09-05 01:00 | disposition left against medical advice (07) | LOC: ED 23:07 | DX: R07.89 Other chest pain (principal); R00.0 Tachycardia, unspecified; Z53.21 Procedure and treatment not carried out due to patient leaving prior to being seen by health care provider ==

== ENCOUNTER 2020-09-09 11:55 | Emergency (ER) | payer MEDICAID ==
[2020-09-09 12:04] VITALS: BP 130/76
[2020-09-09 13:30] LABS: Basophils % (Auto) 0.7 % (0.0-1.8); Eosinophils % (Auto) 0.6 % (0.0-4.3); Hematocrit 41.7 % (30.3-42.9); Hemoglobin 13.9 gm/dl (10.1-14.3); Lymphocytes % (Auto) 22.7 % (13.4-35.0); Mean Corpuscular HGB Conc 33 % (30-34); Mean Corpuscular Volume 90 fl (79-97); Monocytes # (Auto) 0.3 K/mm3 (0.0-0.8); Monocytes % (Auto) 6.6 % (0.0-7.3); Platelet Count 241 K/mm3 (140-440); Red Blood Count 4.61 M/mm3 (3.65-5.03); Red Cell Distribution Width 14.5 % (13.2-15.2)
[2020-09-09 13:37] LABS: INR 1.12 (0.87-1.13)
[2020-09-09 13:38] LABS: Partial Thromboplastin Time 31.5 Sec. (24.2-36.6)
[2020-09-09 13:47] LABS: Alanine Aminotransferase 6 units/L (7-56); Albumin 4.7 g/dL (3.9-5); Blood Urea Nitrogen 8 mg/dL (7-17); Calcium 9.4 mg/dL (8.4-10.2); Hemolysis Index 9
--- NOTE | 2020-09-09 13:51 | XRay Report ---
CHEST 2 VIEWS INDICATION / CLINICAL INFORMATION: Chest Pain. COMPARISON: None available. FINDINGS: SUPPORT DEVICES: None. HEART / MEDIASTINUM: No significant abnormality. LUNGS / PLEURA: No significant pulmonary or pleural abnormality. No pneumothorax. ADDITIONAL FINDINGS: No significant additional findings. IMPRESSION: 1. No acute findings. Signer Name: Walter Fernandes MD Signed: 09/09/2020 1:47 PM Workstation Name: [id number]
[2020-09-09 14:03] LABS: BUN/Creatinine Ratio 11
[2020-09-09 14:24] LABS: Bilirubin,Urine NEG (Negative); Blood,Urine NEG (Negative); Color,Urine Yellow (Yellow); Hyaline Casts,Urine 1 /LPF; Mucus,Urine 3+ /HPF; Protein,Urine <15 mg/dL mg/dL (Negative); Urobilinogen,Urine < 2.0 mg/dL (<2.0)
[2020-09-09 14:37] LABS: Amphetamine Screen,Urine PRESUMPTIVE NEGATIVE; Benzodiazepines Screen,Urine PRESUMPTIVE NEGATIVE; Cannabinoid Screen,Urine PRESUMPTIVE POSITIVE; Cocaine Screen,Urine PRESUMPTIVE NEGATIVE; Methadone Screen,Urine PRESUMPTIVE NEGATIVE; Opiate Screen,Urine PRESUMPTIVE POSITIVE
--- NOTE | 2020-09-09 16:06 | Emergency Department Report ---
ED Palpitations HPI - General Chief Complaint: Arrhythmia/Palpitations Stated Complaint: HEART PROBLEMS Time Seen by Provider: 09/09/20 12:29 Source: patient Mode of arrival: Ambulatory Limitations: No Limitations - History of Present Illness Initial Comments: This is a 25-year-old female nontoxic, well nourished in appearance, no acute signs of distress presents to the ED with c/o of heart palpation x 1 day. Patient stated that symptoms started after taking Percocets. Patient otherwise denies any chest pain. Patient denies any upper respiratory symptoms. Patient denies any shortness of breath, hemoptysis, fever, chills, nausea, vomiting, headache, stiff neck, numbness, tingling, abdominal pain. Patient denies pleuritic chest pain. Patient denies any recent travels or long car rides. Patient denies any recent surgeries or any sick contacts. Patient denies taking oral contraceptives. MD Complaint: "heart racing" -: Last night Associated Symptoms: anxiety. denies: chest pain, shortness of breath, syncope, near-syncope, nausea/vomiting, diaphoresis, cough, parasthesias, feeling of impending doom, muscle cramps - Related Data Home Medications Medication Instructions Recorded Confirmed Last Taken One Daily Tablet 1 tab PO DAILY 04/30/20 04/30/20 04/29/20 08:00 1 Previous Rx's Medication Instructions Recorded Last Taken Type Ibuprofen [Motrin] 600 mg PO Q8H PRN #60 tablet 05/01/20 Unknown Rx oxyCODONE /ACETAMINOPHEN [Percocet 1 tab PO Q6HR PRN #20 tablet 05/01/20 Unknown Rx 5/325] oxyCODONE /ACETAMINOPHEN [Percocet 1 tab PO Q6HR PRN #20 tablet 05/07/20 Unknown Rx 5/325] Acetaminophen [Tylenol] 650 mg PO Q8HR PRN #20 capsule 07/25/20 Unknown Rx Allergies Allergy/AdvReac Type Severity Reaction Status Date / Time codeine Allergy Swelling Verified 09/09/20 12:00 ibuprofen Allergy Swelling Verified 09/09/20 12:00 tramadol Allergy Swelling Verified 09/09/20 12:00 Latex, Natural Rubber AdvReac Anaphylaxis Verified 09/09/20 12:00 ED Review of Systems ROS: Stated complaint: HEART PROBLEMS Other details as noted in HPI Comment: All other systems reviewed and negative Constitutional: denies: chills, fever Eyes: denies: eye pain, eye discharge, vision change ENT: denies: ear pain, throat pain Respiratory: denies: cough, shortness of breath, wheezing Cardiovascular: denies: chest pain, palpitations Endocrine: no symptoms reported Gastrointestinal: denies: abdominal pain, nausea, diarrhea Genitourinary: denies: urgency, dysuria, discharge Musculoskeletal: denies: back pain, joint swelling, arthralgia Skin: denies: rash, lesions Neurological: denies: headache, weakness, paresthesias Psychiatric: denies: anxiety, depression Hematological/Lymphatic: denies: easy bleeding, easy bruising ED Past Medical Hx - Past Medical History Hx Hypertension: No Hx Congestive Heart Failure: No Hx Diabetes: No Hx Deep Vein Thrombosis: No Hx Renal Disease: No Hx Sickle Cell Disease: No Hx Seizures: No Hx Asthma: Yes Hx COPD: No Hx HIV: No - Surgical History Additional Surgical History: 3 c-sections - Social History Smoking Status: Current Every Day Smoker Substance Use Type: None - Medications Home Medications: Home Medications Medication Instructions Recorded Confirmed Last Taken Type One Daily Tablet 1 tab PO DAILY 04/30/20 04/30/20 04/29/20 08:00 Histo ry 1 Ibuprofen [Motrin] 600 mg PO Q8H PRN #60 tablet 05/01/20 Unknown Rx oxyCODONE /ACETAMINOPHEN [Percocet 1 tab PO Q6HR PRN #20 tablet 05/01/20 Unknown Rx 5/325] oxyCODONE /ACETAMINOPHEN [Percocet 1 tab PO Q6HR PRN #20 tablet 05/07/20 Unknown Rx 5/325] Acetaminophen [Tylenol] 650 mg PO Q8HR PRN #20 capsule 07/25/20 Unknown Rx ED Physical Exam - General Limitations: No Limitations General appearance: alert, in no apparent distress - Head Head exam: Present: atraumatic, normocephalic - Eye Eye exam: Present: normal appearance - Neck Neck exam: Present: normal inspection, full ROM. Absent: tenderness, meningismus, lymphadenopathy - Respiratory Respiratory exam: Present: normal lung sounds bilaterally. Absent: respiratory distress, wheezes, rales, rhonchi, stridor, chest wall tenderness, accessory muscle use, decreased breath sounds, prolonged expiratory - Cardiovascular Cardiovascular Exam: Present: regular rate, normal rhythm, normal heart sounds. Absent: bradycardia, tachycardia, irregular rhythm, systolic murmur, diastolic murmur, rubs, gallop - GI/Abdominal GI/Abdominal exam: Present: soft, normal bowel sounds. Absent: distended, tenderness, guarding, rebound, rigid, diminished bowel sounds - Extremities Exam Extremities exam: Present: normal inspection, full ROM - Back Exam Back exam: Present: normal inspection, full ROM. Absent: tenderness, CVA tenderness (R), CVA tenderness (L), muscle spasm, paraspinal tenderness, vertebral tenderness, rash noted - Neurological Exam Neurological exam: Present: alert, oriented X3, normal gait - Psychiatric Psychiatric exam: Present: normal affect, anxious. Absent: depressed, flat affect, manic, homicidal ideation, suicidal ideation - Skin Skin exam: Present: warm, dry, intact, normal color. Absent: rash ED Course Vital Signs 09/09/20 12:00 Temperature 97.8 F Pulse Rate 97 H Respiratory 20 Rate Blood Pressure 130/76 O2 Sat by Pulse 95 Oximetry - Reevaluation(s) Reevaluation #1: 09/09/20 16:07 Patient is speaking in full sentences with no signs of distress noted. ED Medical Decision Making - Lab Data Result diagrams: 09/09/20 13:05 09/09/20 13:05 Lab Results 09/09/20 09/09/20 09/09/20 Range/Units 13:05 13:05 13:05 WBC 4.5 (4.5-11.0) K/mm3 RBC 4.61 (3.65-5.03) M/mm3 Hgb 13.9 (10.1-14.3) gm/dl Hct 41.7 (30.3-42.9) % MCV 90 (79-97) fl MCH 30 (28-32) pg MCHC 33 (30-34) % RDW 14.5 (13.2-15.2) % Plt Count 241 (140-440) K/mm3 Lymph % (Auto) 22.7 (13.4-35.0) % [place] % (Auto) 6.6 (0.0-7.3) % Eos % (Auto) 0.6 (0.0-4.3) % Baso % (Auto) 0.7 (0.0-1.8) % Lymph # (Auto) 1.0 L (1.2-5.4) K/mm3 [place] # (Auto) 0.3 (0.0-0.8) K/mm3 Eos # (Auto) 0.0 (0.0-0.4) K/mm3 Baso # (Auto) 0.0 (0.0-0.1) K/mm3 Seg Neutrophils % 69.4 (40.0-70.0) % Seg Neutrophils # 3.1 (1.8-7.7) K/mm3 PT 14.2 (12.2-14.9) Sec. INR 1.12 (0.87-1.13) APTT 31.5 (24.2-36.6) Sec. Sodium (137-145) mmol/L Potassium (3.6-5.0) mmol/L Chloride (98-107) mmol/L Carbon Dioxide (22-30) mmol/L Anion Gap mmol/L BUN (7-17) mg/dL Creatinine (0.6-1.2) mg/dL Estimated GFR ml/min BUN/Creatinine Ratio % Glucose (65-100) mg/dL Calcium (8.4-10.2) mg/dL Total Bilirubin (0.1-1.2) mg/dL AST (5-40) units/L ALT (7-56) units/L Alkaline Phosphatase (35-129) units/L Troponin T (0.00-0.029) ng/mL Total Protein (6.3-8.2) g/dL Albumin (3.9-5) g/dL Albumin/Globulin Ratio % HCG, Qual Negative (Negative) Urine Color (Yellow) Urine Turbidity (Clear) Urine pH (5.0-7.0) Ur Specific [place] (1.003-1.030) Urine Protein (Negative) mg/dL Urine Glucose (UA) (Negative) mg/dL Urine Ketones (Negative) mg/dL Urine Blood (Negative) Urine Nitrite (Negative) Urine Bilirubin (Negative) Urine Urobilinogen (<2.0) mg/dL Ur Leukocyte Esterase (Negative) Urine WBC (Auto) (0.0-6.0) /HPF Urine RBC (Auto) (0.0-6.0) /HPF U Epithel Cells (Auto) (0-13.0) /HPF Hyaline Casts /LPF Urine Mucus /HPF Urine Opiates Screen Urine Methadone Screen Ur Barbiturates Screen Ur Phencyclidine Scrn Ur Amphetamines Screen U Benzodiazepines Scrn Urine Cocaine Screen U Marijuana (THC) Screen Drugs of Abuse Note Plasma/Serum Alcohol (0-0.07) % 09/09/20 09/09/20 09/09/20 Range/Units 13:05 13:05 Unknown WBC (4.5-11.0) K/mm3 RBC (3.65-5.03) M/mm3 Hgb (10.1-14.3) gm/dl Hct (30.3-42.9) % MCV (79-97) fl MCH (28-32) pg MCHC (30-34) % RDW (13.2-15.2) % Plt Count (140-440) K/mm3 Lymph % (Auto) (13.4-35.0) % [place] % (Auto) (0.0-7.3) % Eos % (Auto) (0.0-4.3) % Baso % (Auto) (0.0-1.8) % Lymph # (Auto) (1.2-5.4) K/mm3 [place] # (Auto) (0.0-0.8) K/mm3 Eos # (Auto) (0.0-0.4) K/mm3 Baso # (Auto) (0.0-0.1) K/mm3 Seg Neutrophils % (40.0-70.0) % Seg Neutrophils # (1.8-7.7) K/mm3 PT (12.2-14.9) Sec. INR (0.87-1.13) APTT (24.2-36.6) Sec. Sodium 135 L (137-145) mmol/L Potassium 3.8 (3.6-5.0) mmol/L Chloride 98.4 (98-107) mmol/L Carbon Dioxide 25 (22-30) mmol/L Anion Gap 15 mmol/L BUN 8 (7-17) mg/dL Creatinine 0.7 (0.6-1.2) mg/dL Estimated GFR > 60 ml/min BUN/Creatinine Ratio 11 % Glucose 120 H (65-100) mg/dL Calcium 9.4 (8.4-10.2) mg/dL Total Bilirubin 0.30 (0.1-1.2) mg/dL AST 14 (5-40) units/L ALT 6 L (7-56) units/L Alkaline Phosphatase 55 (35-129) units/L Troponin T < 0.010 (0.00-0.029) ng/mL Total Protein 7.8 (6.3-8.2) g/dL Albumin 4.7 (3.9-5) g/dL Albumin/Globulin Ratio 1.5 % HCG, Qual (Negative) Urine Color Yellow (Yellow) Urine Turbidity Hazy (Clear) Urine pH 6.0 (5.0-7.0) Ur Specific [place] 1.020 (1.003-1.030) Urine Protein <15 mg/dl (Negative) mg/dL Urine Glucose (UA) Neg (Negative) mg/dL Urine Ketones Tr (Negative) mg/dL Urine Blood Neg (Negative) Urine Nitrite Neg (Negative) Urine Bilirubin Neg (Negative) Urine Urobilinogen < 2.0 (<2.0) mg/dL Ur Leukocyte Esterase Neg (Negative) Urine WBC (Auto) 1.0 (0.0-6.0) /HPF Urine RBC (Auto) 2.0 (0.0-6.0) /HPF U Epithel Cells (Auto) 5.0 (0-13.0) /HPF Hyaline Casts 1 /LPF Urine Mucus 3+ /HPF Urine Opiates Screen Urine Methadone Screen Ur Barbiturates Screen Ur Phencyclidine Scrn Ur Amphetamines Screen U Benzodiazepines Scrn Urine Cocaine Screen U Marijuana (THC) Screen Drugs of Abuse Note Plasma/Serum Alcohol < 0.01 (0-0.07) % 09/09/20 Range/Units Unknown WBC (4.5-11.0) K/mm3 RBC (3.65-5.03) M/mm3 Hgb (10.1-14.3) gm/dl Hct (30.3-42.9) % MCV (79-97) fl MCH (28-32) pg MCHC (30-34) % RDW (13.2-15.2) % Plt Count (140-440) K/mm3 Lymph % (Auto) (13.4-35.0) % [place] % (Auto) (0.0-7.3) % Eos % (Auto) (0.0-4.3) % Baso % (Auto) (0.0-1.8) % Lymph # (Auto) (1.2-5.4) K/mm3 [place] # (Auto) (0.0-0.8) K/mm3 Eos # (Auto) (0.0-0.4) K/mm3 Baso # (Auto) (0.0-0.1) K/mm3 Seg Neutrophils % (40.0-70.0) % Seg Neutrophils # (1.8-7.7) K/mm3 PT (12.2-14.9) Sec. INR (0.87-1.13) APTT (24.2-36.6) Sec. Sodium (137-145) mmol/L Potassium (3.6-5.0) mmol/L Chloride (98-107) mmol/L Carbon Dioxide (22-30) mmol/L Anion Gap mmol/L BUN (7-17) mg/dL Creatinine (0.6-1.2) mg/dL Estimated GFR ml/min BUN/Creatinine Ratio % Glucose (65-100) mg/dL Calcium (8.4-10.2) mg/dL Total Bilirubin (0.1-1.2) mg/dL AST (5-40) units/L ALT (7-56) units/L Alkaline Phosphatase (35-129) units/L Troponin T (0.00-0.029) ng/mL Total Protein (6.3-8.2) g/dL Albumin (3.9-5) g/dL Albumin/Globulin Ratio % HCG, Qual (Negative) Urine Color (Yellow) Urine Turbidity (Clear) Urine pH (5.0-7.0) Ur Specific [place] (1.003-1.030) Urine Protein (Negative) mg/dL Urine Glucose (UA) (Negative) mg/dL Urine Ketones (Negative) mg/dL Urine Blood (Negative) Urine Nitrite (Negative) Urine Bilirubin (Negative) Urine Urobilinogen (<2.0) mg/dL Ur Leukocyte Esterase (Negative) Urine WBC (Auto) (0.0-6.0) /HPF Urine RBC (Auto) (0.0-6.0) /HPF U Epithel Cells (Auto) (0-13.0) /HPF Hyaline Casts /LPF Urine Mucus /HPF Urine Opiates Screen Presumptive positive Urine Methadone Screen Presumptive negative Ur Barbiturates Screen Presumptive negative Ur Phencyclidine Scrn Presumptive negative Ur Amphetamines Screen Presumptive negative U Benzodiazepines Scrn Presumptive negative Urine Cocaine Screen Presumptive negative U Marijuana (THC) Screen Presumptive positive Drugs of Abuse Note Disclamer Plasma/Serum Alcohol (0-0.07) % - EKG Data 09/09/20 16:08 Normal sinus rhythm with no ST or T wave abnormalities. Reviewed and signed by . - Radiology Data [facility] [address] [place] [address] X Ray Report Signed Patient: DORIS REDDY MR#: [id number] : 1995 Acct:[id number] Age/Sex: 25 / F ADM Date: 09/09/20 Loc: ED Attending Dr: Ordering Physician: OZZIE VILLAR NP Date of Service: 09/09/20 Procedure(s): XR chest routine 2V Accession Number(s): [id number] cc: OZZIE VILLAR NP Fluoro Time In Minutes: CHEST 2 VIEWS INDICATION / CLINICAL INFORMATION: Chest Pain. COMPARISON: None available. FINDINGS: SUPPORT DEVICES: None. HEART / MEDIASTINUM: No significant abnormality. LUNGS / PLEURA: No significant pulmonary or pleural abnormality. No pneumothorax. ADDITIONAL FINDINGS: No significant additional findings. IMPRESSION: 1. No acute findings. Signer Name: Walter Fernandes MD Signed: 09/09/2020 1:47 PM Workstation Name: [id number] Transcribed By: LIV Dictated By: Walter Fernandes MD Electronically Authenticated By: Walter Fernandes MD Signed Date/Time: 09/09/201346 DD/ 46 TD/TT: - Medical Decision Making 25-year-old female that presents with heart palpitation and anxiety. Patient is stable and was examined by me. Labs has been obtained and checks x-ray has been obtained with no significant abnormalities. Patient was called back for reexamination and to notify the results but patient was no longer in the ho spital. Phone number listed on the chart is incorrect. I was not able to get in touch with the patient. Patient left against medical advise without letting anybody know. Critical care attestation.: If time is entered above; I have spent that time in minutes in the direct care of this critically ill patient, excluding procedure time. ED Disposition Clinical Impression: Heart palpitations, Anxiety, Opioid abuse Disposition: DC-07 LEFT AGAINST MED ADVICE Is pt being admited?: No Does the pt Need Aspirin: No Condition: Undetermined
--- NOTE | 2020-09-10 18:40 | Electrocardiograph Report ---
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
== END 2020-09-09 16:10 | disposition left against medical advice (07) ==
LOC: ED 11:55
DX: F11.10 Opioid abuse, uncomplicated (principal); F41.9 Anxiety disorder, unspecified; R00.2 Palpitations; J45.909 Unspecified asthma, uncomplicated; F17.200 Nicotine dependence, unspecified, uncomplicated; Z98.890 Other specified postprocedural states; Z79.1 Long term (current) use of non-steroidal anti-inflammatories (NSAID); Z79.899 Other long term (current) drug therapy; Z88.8 Allergy status to other drugs, medicaments and biological substances
CPT/HCPCS: 36415; 71046; 80053; 80307; 80320; 81001; 84484; 84703; 85025; 85610; 85730; 93005; G0480

== ENCOUNTER 2020-09-22 19:21 | Emergency (ER) | payer MEDICAID ==
[2020-09-22 20:15] VITALS: BP 130/82
--- NOTE | 2020-09-23 10:55 | Electrocardiograph Report ---
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
== END 2020-09-22 21:40 | disposition left against medical advice (07) ==
LOC: ED 19:21
DX: R07.89 Other chest pain (principal); Z53.21 Procedure and treatment not carried out due to patient leaving prior to being seen by health care provider
CPT/HCPCS: 93005

== ENCOUNTER 2020-12-03 23:12 | Emergency (ER) | payer MEDICAID | END 2020-12-03 23:20 | disposition left against medical advice (07) | LOC: ED 23:12 | DX: R07.9 Chest pain, unspecified (principal); Z53.21 Procedure and treatment not carried out due to patient leaving prior to being seen by health care provider ==

== ENCOUNTER 2021-02-18 08:49 | Observation (INO) | payer MEDICAID ==
[2021-02-18] MEDS ORDERED: ONDANSETRON 4 MG/2 ML INJ IV ONE (10:32)
[2021-02-18] MEDS ORDERED: MORPHINE 4 MG/1 ML INJ IV ONE ×2 (10:32→13:30)
--- NOTE | 2021-02-18 10:34 | Emergency Department Report ---
HPI - General Chief Complaint: Abdominal Pain Time Seen by Provider: 02/18/21 10:25 - HPI HPI: 25-year-old -[place] female presents to the emergency department with a complaint of lower abdominal pain. The patient first began experiencing midline lower and/or periumbilical burning pain over the past 2 weeks. This morning, the patient woke up with severe right lower quadrant pain. She denies any fever, nausea, vomiting, diarrhea, constipation, vaginal bleeding or discharge, dysuria. She denies any past medical history. She tried some Tylenol for her symptoms without any relief. No recent travel or sick contacts at home. ED Past Medical Hx - Past Medical History Previous Medical History?: Yes Hx Hypertension: No Hx Congestive Heart Failure: No Hx Diabetes: No Hx Deep Vein Thrombosis: No Hx Renal Disease: No Hx Sickle Cell Disease: No Hx Seizures: No Hx Asthma: Yes Hx COPD: No Hx HIV: No - Surgical History Past Surgical History?: Yes Additional Surgical History: 3 c-sections - Social History Smoking Status: Current Every Day Smoker Substance Use Type: None - Medications Home Medications: Home Medications Medication Instructions Recorded Confirmed Last Taken Type One Daily Tablet 1 tab PO DAILY 04/30/20 04/30/20 04/29/20 08:00 History 1 Ibuprofen [Motrin] 600 mg PO Q8H PRN #60 tablet 05/01/20 Unknown Rx oxyCODONE /ACETAMINOPHEN [Percocet 1 tab PO Q6HR PRN #20 tablet 05/01/20 Unknown Rx 5/325] oxyCODONE /ACETAMINOPHEN [Percocet 1 tab PO Q6HR PRN #20 tablet 05/07/20 Unknown Rx 5/325] Acetaminophen [Tylenol] 650 mg PO Q8HR PRN #20 capsule 07/25/20 Unknown Rx ED Review of Systems ROS: Stated complaint: ABD PAIN Other details as noted in HPI Comment: All other systems reviewed and negative Constitutional: denies: chills, fever Eyes: denies: eye pain, vision change ENT: denies: ear pain, throat pain Respiratory: denies: cough, shortness of breath Cardiovascular: denies: chest pain, palpitations Gastrointestinal: abdominal pain. denies: nausea, vomiting Genitourinary: denies: dysuria, discharge Musculoskeletal: denies: back pain, arthralgia Skin: denies: rash, lesions Neurological: denies: headache, weakness Physical Exam - Physical Exam Vital Signs: Vital Signs 02/18/21 08:56 Temperature 97.9 F Pulse Rate 76 Respiratory 16 Rate Blood Pressure 110/78 [Left] O2 Sat by Pulse 98 Oximetry Physical Exam: GENERAL: The patient is well-developed well-nourished. HENT: Normocephalic. Atraumatic. Patient has moist mucous membranes. EYES: Extraocular motions are intact. NECK: Supple. Trachea is midline. CHEST/LUNGS: Clear to auscultation. There is no respiratory distress noted. HEART/CARDIOVASCULAR: Regular. There is no tachycardia. There is no murmur. ABDOMEN: Abdomen is soft bilateral lower abdominal tenderness to palpation with right much greater than left. Patient has normal bowel sounds. There is no abdominal distention. SKIN: Skin is warm and dry. NEURO: The patient is awake, alert, and oriented. The patient is cooperative. The patient has no focal neurologic deficits. Normal speech. MUSCULOSKELETAL: There is no tenderness or deformity. There is no limitation range of motion. BACK: No CVA tenderness to palpation. ED Course Vital Signs 02/18/21 08:56 Temperature 97.9 F Pulse Rate 76 Respiratory 16 Rate Blood Pressure 110/78 [Left] O2 Sat by Pulse 98 Oximetry - Consultations Consultation #1: 02/18/21 13:47 I spoke to the general surgeon on-call, Dr. Soni, in regards to the patient's presentation and my concern that the CT does not visualize the appendix, when the appendix was clearly seen 10 months ago at another CT scan of the abdomen and pelvis. The patient continues to have significant abdominal tenderness to palpation in the right lower quadrant. He is asked for the patient to be NPO and to receive IV Zosyn. He will consult on the patient. ED Medical Decision Making - Lab Data Result diagrams: 02/18/21 10:42 02/18/21 10:42 Lab Results 02/18/21 02/18/21 02/18/21 Range/Units 10:42 10:42 10:42 WBC 5.6 (4.5-11.0) K/mm3 RBC 4.04 (3.65-5.03) M/mm3 Hgb 12.6 (10.1-14.3) gm/dl Hct 37.4 (30.3-42.9) % MCV 92 (79-97) fl MCH 31 (28-32) pg MCHC 34 (30-34) % RDW 15.1 (13.2-15.2) % Plt Count 216 (140-440) K/mm3 Lymph % (Auto) 18.9 (13.4-35.0) % [place] % (Auto) 8.1 H (0.0-7.3) % Eos % (Auto) 0.5 (0.0-4.3) % Baso % (Auto) 0.6 (0.0-1.8) % Lymph # (Auto) 1.1 L (1.2-5.4) K/mm3 [place] # (Auto) 0.5 (0.0-0.8) K/mm3 Eos # (Auto) 0.0 (0.0-0.4) K/mm3 Baso # (Auto) 0.0 (0.0-0.1) K/mm3 Seg Neutrophils % 71.9 H (40.0-70.0) % Seg Neutrophils # 4.1 (1.8-7.7) K/mm3 Sodium 135 L (137-145) mmol/L Potassium 4.4 (3.6-5.0) mmol/L Chloride 100.4 (98-107) mmol/L Carbon Dioxide 25 (22-30) mmol/L Anion Gap 14 mmol/L BUN 13 (7-17) mg/dL Creatinine 0.6 (0.6-1.2) mg/dL Estimated GFR > 60 ml/min BUN/Creatinine Ratio 22 % Glucose 95 (65-100) mg/dL Calcium 9.4 (8.4-10.2) mg/dL Total Bilirubin 0.30 (0.1-1.2) mg/dL Direct Bilirubin < 0.2 (0-0.2) mg/dL Indirect Bilirubin 0.1 mg/dL AST 13 (5-40) units/L ALT 8 (7-56) units/L Alkaline Phosphatase 51 (35-129) units/L Total Protein 7.4 (6.3-8.2) g/dL Albumin 4.3 (3.9-5) g/dL Albumin/Globulin Ratio 1.4 % Lipase 24 (13-60) units/L HCG, Qual Negative (Negative) - Radiology Data Radiology results: report reviewed CT ABDOMEN AND PELVIS WITH CONTRAST INDICATION / CLINICAL INFORMATION: RLQ abdominal pain OMNI 300 100ML. TECHNIQUE: Axial CT images were obtained through the abdomen and pelvis after IV contrast. All CT scans at this location are performed using CT dose reduction for ALARA by means of automated exposure control. COMPARISON: CT dated 05/13/20 FINDINGS: LOWER CHEST: No significant abnormality. LIVER: No significant abnormality. GALLBLADDER: No significant abnormality. BILE DUCTS: No significant abnormality. PANCREAS: No significant abnormality. SPLEEN: No significant abnormality. ADRENALS: No significant abnormality. RIGHT KIDNEY / URETER: No significant abnormality. LEFT KIDNEY / URETER: No significant abnormality. STOMACH / SMALL BOWEL: No significant abnormality. COLON: No significant abnormality. APPENDIX: Not visualized. No abnormal appendix. PERITONEUM: Trace free fluid in the cul-de-sac which may be physiologic in this young female patient. No free air. No fluid collection. LYM PH NODES: No significant adenopathy. AORTA / ARTERIES: No significant abnormality. IVC / VEINS: No significant abnormality. URINARY BLADDER: No significant abnormality. REPRODUCTIVE ORGANS: 2.4 cm simple appearing right ovarian cyst. No acute abnormality. ADDITIONAL FINDINGS: None. SKELETAL SYSTEM: No significant abnormality. IMPRESSION: 1. No inflammatory process or bowel obstruction. 2. 2.4 cm simple appearing right ovarian cysts with trace free fluid in the cul-de-sac. - Medical Decision Making This patient presents to the emergency department with acute lower abdominal pain with right greater than left. No CVA tenderness to palpation or peritoneal signs on examination. Patient was given IV fluid resuscitation and IV analgesia. Labs unremarkable including CBC, metabolic panel, urinalysis, and the patient is not . She had a CT scan of the abdomen and pelvis with IV contrast that showed a 2.4 cm right ovarian cyst and some trace pelvic fluid that could be physiologic. However, the CT scan of the abdomen and pelvis does not show have visualization of the appendix. The patient had a CT scan of the abdomen and pelvis about 10 months ago that had a normal-appearing and visualized appendix at that time. It seems less likely that the patient has a ruptured appendicitis without fever, leukocytosis and or peritoneal signs. However, I discussed the case with the general surgeon on-call who recommended admission to the hospital service, nothing by mouth, IV Zosyn, and he will see the patient for a consult. Critical Care Time: No Critical care attestation.: If time is entered above; I have spent that time in minutes in the direct care of this critically ill patient, excluding procedure time. ED Disposition Clinical Impression: Ruptured ovarian cyst, Right lower quadrant abdominal pain Acute appendicitis Qualifiers: Appendicitis perforation presence: unspecified whether perforation present Disposition: ADMITTED INPATIENT Is pt being admited?: No Condition: Fair Time of Disposition: 16:30
[2021-02-18 11:01] LABS: Basophils % (Auto) 0.6 % (0.0-1.8); Eosinophils % (Auto) 0.5 % (0.0-4.3); Hematocrit 37.4 % (30.3-42.9); Hemoglobin 12.6 gm/dl (10.1-14.3); Lymphocytes # (Auto) 1.1 K/mm3 (1.2-5.4); Lymphocytes % (Auto) 18.9 % (13.4-35.0); Mean Corpuscular HGB Conc 34 % (30-34); Mean Corpuscular Volume 92 fl (79-97); Monocytes # (Auto) 0.5 K/mm3 (0.0-0.8); Monocytes % (Auto) 8.1 % (0.0-7.3); Platelet Count 216 K/mm3 (140-440); Red Blood Count 4.04 M/mm3 (3.65-5.03); Red Cell Distribution Width 15.1 % (13.2-15.2)
[2021-02-18 11:42] LABS: Alanine Aminotransferase 8 units/L (7-56); Albumin 4.3 g/dL (3.9-5); BUN/Creatinine Ratio 22; Bilirubin,Direct < 0.2 mg/dL (0-0.2); Blood Urea Nitrogen 13 mg/dL (7-17); Calcium 9.4 mg/dL (8.4-10.2); Hemolysis Index 8
--- NOTE | 2021-02-18 13:12 | Cat Scan Report ---
CT ABDOMEN AND PELVIS WITH CONTRAST INDICATION / CLINICAL INFORMATION: RLQ abdominal pain OMNI 300 100ML. TECHNIQUE: Axial CT images were obtained through the abdomen and pelvis after IV contrast. All CT sc ans at this location are performed using CT dose reduction for ALARA by means of automated exposure c ontrol. COMPARISON: CT dated 05/13/20 FINDINGS: LOWER CHEST: No significant abnormality. LIVER: No significant abnormality. GALLBLADDER: No significant abnormality. BILE DUCTS: No significant abnormality. PANCREAS: No significant abnormality. SPLEEN: No significant abnormality. ADRENALS: No significant abnormality. RIGHT KIDNEY / URETER: No significant abnormality. LEFT KIDNEY / URETER: No significant abnormality. STOMACH / SMALL BOWEL: No significant abnormality. COLON: No significant abnormality. APPENDIX: Not visualized. No abnormal appendix. PERITONEUM: Trace free fluid in the cul-de-sac which may be physiologic in this young female patient. No free air. No fluid collection. LYMPH NODES: No significant adenopathy. AORTA / ARTERIES: No significant abnormality. IVC / VEINS: No significant abnormality. URINARY BLADDER: No significant abnormality. REPRODUCTIVE ORGANS: 2.4 cm simple appearing right ovarian cyst. No acute abnormality. ADDITIONAL FINDINGS: None. SKELETAL SYSTEM: No significant abnormality. IMPRESSION: 1. No inflammatory process or bowel obstruction. 2. 2.4 cm simple appearing right ovarian cysts with trace free fluid in the cul-de-sac. Signer Name: Tamanna Vlilarreal MD Signed: 02/18/2021 1:07 PM Workstation Name: [id number]
[2021-02-18] MEDS ORDERED: PIPERACIL/TAZOBACTA 4.5/NS 100 4.5 GM/100 ML VIAL IV ONE (13:35)
[2021-02-18] MEDS ORDERED: ONDANSETRON 4 MG/2 ML INJ IV PRN (14:19)
[2021-02-18] MEDS ORDERED: oxyCODONE /ACETAMINOPHEN 5-325MG TAB PO PRN (14:19)
[2021-02-18] MEDS ORDERED: ALBUTEROL 2.5 MG/3 ML NEBU IH PRN (14:19)
[2021-02-18] MEDS ORDERED: ACETAMINOPHEN 325 MG TAB PO PRN (14:19)
--- NOTE | 2021-02-18 15:26 | History and Physical Report ---
History of Present Illness Date of admission: 02/18/21 14:19 Chief complaint: I have stomach pain History of present illness: 25 YO Female with Mild Intermittent Asthma, Nicotine Dependence presents ED for evaluation. Patient reports "I have stomach pain". Patient states that she has experienced abdominal pain over the past 2 weeks with persistent and worsening symptoms over the same timeframe. Patient states that pain is 6/10, constant, awoke her from sleep this morning, localized to the right lower quadrant. Patient denies exacerbating or alleviating factors. Patient transported to [facility] via private vehicle for further care and evaluation of the aforementioned symptoms. Patient seen and evaluated in the emergency department. All lab and imaging studies reviewed. Patient underwent CT scan of the abdomen and pelvis which is suspicious for acute appendicitis, with concomitant diagnosis of ruptured ovarian cyst. Patient admitted to medical floor due to increased risk of worsening symptoms. Surgery team consulted. Patient denies fever, chills, chest pain, palpitation, productive cough, skin rash, recent contact, ingestion of food/water from new or different sources, bright red blood per rectum, unknown exposure to COVID-19. No prior admission for review. No medication listed for reconciliation at the time of admission. Past History Past Medical History: other (See HPI) Past Surgical History: Social history: single, smoking. denies: alcohol abuse Family history: hypertension Medications and Allergies Allergies Allergy/AdvReac Type Severity Reaction Status Date / Time codeine Allergy Swelling Verified 09/09/20 12:00 ibuprofen Allergy Swelling Verified 09/09/20 12:00 tramadol Allergy Swelling Verified 09/09/20 12:00 Latex, Natural Rubber AdvReac Anaphylaxis Verified 09/09/20 12:00 Home Medications Medication Instructions Recorded Confirmed Last Taken Type One Daily Tablet 1 tab PO DAILY 04/30/20 04/30/20 04/29/20 08:00 Hi story 1 Ibuprofen [Motrin] 600 mg PO Q8H PRN #60 tablet 05/01/20 Unknown Rx oxyCODONE /ACETAMINOPHEN [Percocet 1 tab PO Q6HR PRN #20 tablet 05/01/20 Unknown Rx 5/325] oxyCODONE /ACETAMINOPHEN [Percocet 1 tab PO Q6HR PRN #20 tablet 05/07/20 Unknown Rx 5/325] Acetaminophen [Tylenol] 650 mg PO Q8HR PRN #20 capsule 07/25/20 Unknown Rx Active Meds: Active Medications Acetaminophen (Acetaminophen 325 Mg Tab) 650 mg PO Q4H PRN PRN Reason: Pain MILD(1-3)/Fever >100.5/FLORES Albuterol (Albuterol 2.5 Mg/3 Ml Nebu) 2.5 mg IH Q4HRT PRN PRN Reason: Shortness Of Breath Hydromorphone HCl (Hydromorphone 1 Mg/1 Ml Inj) 0.5 mg IV Q6H PRN PRN Reason: Pain , Severe (7-10) Sodium Chloride (Nacl 0.9% 1000 Ml) 1,000 mls @ 125 mls/hr IV DIRECT SINGH Ondansetron HCl (Ondansetron 4 Mg/2 Ml Inj) 4 mg IV Q8H PRN PRN Reason: Nausea And Vomiting Oxycodone/Acetaminophen (Oxycodone /Acetaminophen 5-325mg Tab) 1 tab PO Q16H PRN PRN Reason: Pain, Moderate (4-6) Sodium Chloride (Sodium Chloride 0.9% 10 Ml Flush Syringe) 10 ml IV BID SINGH Sodium Chloride (Sodium Chloride 0.9% 10 Ml Flush Syringe) 10 ml IV PRN PRN PRN Reason: LINE FLUSH Review of Systems Constitutional: no weight loss, no fever, no chills Ears, nose, mouth and throat: no ear pain, no ear discharge, no nose pain, no nasal congestion, no nasal discharge Breasts: no change in shape, no mass Cardiovascular: no palpitations, no rapid/irregular heart beat, no syncope, no lightheadedness Respiratory: no cough, no cough with sputum, no hemoptysis, no dyspnea on exertion Gastrointestinal: abdominal pain, no nausea, no vomiting, no constipation, no BRBPR, no melena, no hematochezia, no early satiety ([place]) Genitourinary Female: no pelvic pain, no flank pain, no dysuria, no urinary frequency, no urgency (Medial lower leg) Rectal: no pain, no incontinence, no bleeding Musculoskeletal: no neck stiffness, no arm numbness/tingling, no shooting leg pain, no leg numbness/tingling, no redness of joints (She may take Sinemet during exam) Integumentary: no rash, no pruritis, no sores Neurological: no head injury, no paralysis, no weakness, no parathesias, no numbness, no tingling, no seizures Psychiatric: no anxiety, no memory loss, no sleep disturbances, no hypersomnia, no change in libido, no suicidal ideation Endocrine: no cold intolerance, no polydipsia, no nocturia, no flushing Hematologic/Lymphatic: no easy bruising, no lymphedema Allergic/Immunologic: no urticaria, no allergic rhinitis, no persistent infections, no anaphylaxis Exam - Constitutional Vitals: Temp Pulse Resp BP Pulse Ox 97.9 F 76 16 110/78 98 02/18/21 08:56 02/18/21 08:56 02/18/21 14:18 02/18/21 08:56 02/18/21 08:56 General appearance: Present: mild distress - EENT Eyes: Present: PERRL ENT: hearing intact, clear oral mucosa - Neck Neck: Present: supple, normal ROM - Respiratory Respiratory effort: normal Respiratory: bilateral: CTA - Cardiovascular Heart Sounds: Present: S1 & S2. Absent: rub, click - Extremities Extremities: pulses symmetrical, No edema Peripheral Pulses: within normal limits - Abdominal General gastrointestinal: Present: soft, tender, non-distended, normal bowel sounds. Absent: hepatomegaly, splenomegaly, mass, hernia Localized gastrointestinal: tender: RLQ Female genitourinary: Present: normal - Rectal Rectal Exam: normal exam-external/orifice - Integumentary Integumentary: Present: clear, warm, dry - Musculoskeletal Musculoskeletal: gait normal, strength equal bilaterally - Psychiatric Psychiatric: appropriate mood/affect, intact judgment & insight - Neurologic Neurologic: CNII-XII intact, moves all extremities Results - Labs CBC & Chem 7: 02/18/21 10:42 02/18/21 10:42 Labs: Abnormal lab results 02/18/21 02/18/21 Range/Units 10:42 10:42 [place] % (Auto) 8.1 H (0.0-7.3) % Lymph # (Auto) 1.1 L (1.2-5.4) K/mm3 Seg Neutrophils % 71.9 H (40.0-70.0) % Sodium 135 L (137-145) mmol/L Assessment and Plan - Patient Problems (1) Acute appendicitis Current Visit: Yes Status: Acute Qualifiers: Appendicitis perforation presence: unspecified whether perforation present Plan to address problem: CT scan abdomen and pelvis, empiric IV antibiotic therapy, pain control, bowel rest, surgery team consulted. Surgical intervention as per surgical team. (2) Ruptured ovarian cyst Current Visit: Yes Status: Acute Plan to address problem: CT scan abdomen pelvis, pain control, will consider ultrasound abdomen as cli nically indicated after surgical evaluation. (3) Nicotine dependence Current Visit: Yes Status: Acute Qualifiers: Nicotine product type: cigarettes Substance use status: in withdrawal Qualified Code(s): F17.213 - Nicotine dependence, cigarettes, with withdrawal Plan to address problem: Smoking cessation counseling, supportive care, behavior change counseling, +15 minutes. (4) DVT prophylaxis Current Visit: Yes Status: Acute Plan to address problem: SCD to bilateral lower extremities while in bed, patient is ambulatory.
--- NOTE | 2021-02-18 15:48 | Consultation ---
History of Present Illness Consult date: 02/18/21 Reason for consult: abdominal pain - History of present illness History of present illness: 25 yo female with 2 week h/o umbilical and RLQ pain. Pain is exacerbated by laying on her side. She is not aware of any precipitating factors. No fever, chills, nausea, vomiting, melena, hematochezia, change in bowel habits or urinary complaints. Past History Past Medical History: No medical history, other (See HPI) Past Surgical History: Social history: single, smoking. denies: alcohol abuse Family history: hypertension Medications and Allergies Allergies Allergy/AdvReac Type Severity Reaction Status Date / Time codeine Allergy Swelling Verified 09/09/20 12:00 ibuprofen Allergy Swelling Verified 09/09/20 12:00 tramadol Allergy Swelling Verified 09/09/20 12:00 Latex, Natural Rubber AdvReac Anaphylaxis Verified 09/09/20 12:00 Home Medications Medication Instructions Recorded Confirmed Last Taken Type One Daily Tablet 1 tab PO DAILY 04/30/20 04/30/20 04/29/20 08:00 History 1 Ibuprofen [Motrin] 600 mg PO Q8H PRN #60 tablet 05/01/20 Unknown Rx oxyCODONE /ACETAMINOPHEN [Percocet 1 tab PO Q6HR PRN #20 tablet 05/01/20 Unknown Rx 5/325] oxyCODONE /ACETAMINOPHEN [Percocet 1 tab PO Q6HR PRN #20 tablet 05/07/20 Unknown Rx 5/325] Acetaminophen [Tylenol] 650 mg PO Q8HR PRN #20 capsule 07/25/20 Unknown Rx Active Meds: Active Medications Acetaminophen (Acetaminophen 325 Mg Tab) 650 mg PO Q4H PRN PRN Reason: Pain MILD(1-3)/Fever >100.5/FLORES Albuterol (Albuterol 2.5 Mg/3 Ml Nebu) 2.5 mg IH Q4HRT PRN PRN Reason: Shortness Of Breath Hydromorphone HCl (Hydromorphone 1 Mg/1 Ml Inj) 0.5 mg IV Q6H PRN PRN Reason: Pain , Severe (7-10) Sodium Chloride (Nacl 0.9% 1000 Ml) 1,000 mls @ 125 mls/hr IV DIRECT SINGH Ondansetron HCl (Ondansetron 4 Mg/2 Ml Inj) 4 mg IV Q8H PRN PRN Reason: Nausea And Vomiting Oxycodone/Acetaminophen (Oxycodone /Acetaminophen 5-325mg Tab) 1 tab PO Q16H PRN PRN Reason: Pain, Moderate (4-6) Sodium Chloride (Sodium Chloride 0.9% 10 Ml Flush Syringe) 10 ml IV BID SINGH Sodium Chloride (Sodium Chloride 0.9% 10 Ml Flush Syringe) 10 ml IV PRN PRN PRN Reason: LINE FLUSH Review of Systems All systems: negative (none) Exam Vital Signs Temp Pulse Resp BP Pulse Ox 97.9 F 76 16 110/78 98 02/18/21 08:56 02/18/21 08:56 02/18/21 08:56 02/18/21 08:56 02/18/21 08:56 - General physical appearance Positive: well developed, well nourished, no distress - Eyes Positive: PERRL, normal occular movement - ENT Positive: normal pinna, normal nares, normal mucosa, no hearing loss, no congestion - Neck Positive: no masses, no bruits, trachea midline, no venous distension - Respiratory Positive: normal expansion, normal respiratory effort, clear to auscultation - Cardiovascular Rhythm: regular Heart Sounds: Present: S1 & S2. Absent: rub, click - Extremities Extremities: no ischemia, pulses symmetrical, No edema - Breasts Breasts: normal, no mass, no skin changes - Abdomen Abdomen: Present: soft, bowel sounds normal, other (Mild tenderness in the RLQ to deep palpation without rebound or guarding.). Absent: distended Hernia: none - Genitourinary Male Genitourinary: normal Female Genitourinary: normal - Integumentary no rash, no growths, no abnormal pigmentation - Neurologic Neurologic: alert and oriented to time, place and person, motor strength and sensation are grossly intact - Musculoskeletal normal gait, normal posture - Psychiatric Psychiatric: appropriate mood/affect, intact judgment & insight Results - Labs 02/18/21 10:42 02/18/21 10:42 Abnormal lab results 02/18/21 02/18/21 Range/Units 10:42 10:42 [place] % (Auto) 8.1 H (0.0-7.3) % Lymph # (Auto) 1.1 L (1.2-5.4) K/mm3 Seg Neutrophils % 71.9 H (40.0-70.0) % Sodium 135 L (137-145) mmol/L Diabetes panel 02/18/21 Range/Units 10:42 Sodium 135 L (137-145) mmol/L Potassium 4.4 (3.6-5.0) mmol/L Chloride 100.4 (98-107) mmol/L Carbon Dioxide 25 (22-30) mmol/L BUN 13 (7-17) mg/dL Creatinine 0.6 (0.6-1.2) mg/dL Glucose 95 (65-100) mg/dL Calcium 9.4 (8.4-10.2) mg/dL AST 13 (5-40) units/L ALT 8 (7-56) units/L Alkaline Phosphatase 51 (35-129) units/L Total Protein 7.4 (6.3-8.2) g/dL Albumin 4.3 (3.9-5) g/dL Calcium panel 02/18/21 Range/Units 10:42 Calcium 9.4 (8.4-10.2) mg/dL Albumin 4.3 (3.9-5) g/dL Pituitary panel 02/18/21 Range/Units 10:42 Sodium 135 L (137-145) mmol/L Potassium 4.4 (3.6-5.0) mmol/L Chloride 100.4 (98-107) mmol/L Carbon Dioxide 25 (22-30) mmol/L BUN 13 (7-17) mg/dL Creatinine 0.6 (0.6-1.2) mg/dL Glucose 95 (65-100) mg/dL Calcium 9.4 (8.4-10.2) mg/dL Adrenal panel 02/18/21 Range/Units 10:42 Sodium 135 L (137-145) mmol/L Potassium 4.4 (3.6-5.0) mmol/L Chloride 100.4 (98-107) mmol/L Carbon Dioxide 25 (22-30) mmol/L BUN 13 (7-17) mg/dL Creatinine 0.6 (0.6-1.2) mg/dL Glucose 95 (65-100) mg/dL Calcium 9.4 (8.4-10.2) mg/dL Total Bilirubin 0.30 (0.1-1.2) mg/dL AST 13 (5-40) units/L ALT 8 (7-56) units/L Alkaline Phosphatase 51 (35-129) units/L Total Protein 7.4 (6.3-8.2) g/dL Albumin 4.3 (3.9-5) g/dL - Imaging CT scan - abdomen: report reviewed CT scan - pelvis: report reviewed Assessment and Plan - Patient Problems (1) Right lower quadrant abdominal pain Current Visit: Yes Status: Acute Plan to address problem: 1) NPO 2) IVF 3) CBC in the am 4) Repeat exam tomorrow. I doubt pt has appendicitis.
[2021-02-18] MEDS: HYDROmorphone 1 MG/1 ML INJ IV PRN ×2 (17:27→23:23)
[2021-02-18] MEDS: SODIUM CHLORIDE 0.9% 1000 ML 1,000 ML IV SCH (17:29)
[2021-02-19] MEDS: SODIUM CHLORIDE 0.9% 1000 ML 1,000 ML IV SCH (03:14)
[2021-02-19] MEDS: HYDROmorphone 1 MG/1 ML INJ IV PRN ×2 (05:47→12:37)
[2021-02-19 06:44] LABS: Basophils % (Auto) 0.6 % (0.0-1.8); Eosinophils # (Auto) 0.1 K/mm3 (0.0-0.4); Eosinophils % (Auto) 1.1 % (0.0-4.3); Hematocrit 36.2 % (30.3-42.9); Hemoglobin 12.3 gm/dl (10.1-14.3); Lymphocytes # (Auto) 1.4 K/mm3 (1.2-5.4); Lymphocytes % (Auto) 25.5 % (13.4-35.0); Mean Corpuscular HGB Conc 34 % (30-34); Mean Corpuscular Volume 93 fl (79-97); Monocytes # (Auto) 0.4 K/mm3 (0.0-0.8); Monocytes % (Auto) 7.7 % (0.0-7.3); Platelet Count 203 K/mm3 (140-440); Red Blood Count 3.89 M/mm3 (3.65-5.03); Red Cell Distribution Width 15.1 % (13.2-15.2)
[2021-02-19 07:07] LABS: Blood Urea Nitrogen 11 mg/dL (7-17); Calcium 9.2 mg/dL (8.4-10.2); Hemolysis Index 6
[2021-02-19 07:09] LABS: BUN/Creatinine Ratio 16
[2021-02-19 07:29] LABS: Bilirubin,Urine NEG (Negative); Blood,Urine NEG (Negative); Color,Urine Straw (Yellow); Protein,Urine <15 mg/dL mg/dL (Negative); Urobilinogen,Urine < 2.0 mg/dL (<2.0); WBC,Urine < 1.0 /HPF (0.0-6.0)
--- NOTE | 2021-02-19 10:40 | Progress Note ---
Assessment and Plan - Patient Problems (1) Right lower quadrant abdominal pain Current Visit: Yes Status: Acute Plan to address problem: 1) Do not believe pt has appendicitis. Pt can be discharged with f/u with her PCP. No antibiotics are indicated. Subjective Date of service: 02/19/21 Patient Reports: Positive: no new complaints, feels better, pain is less Objective Vital Signs - 12hr 02/18/21 02/19/21 02/19/21 23:21 02:59 05:29 Temperature 98.3 F Pulse Rate 68 Respiratory 16 Rate Blood Pressure 92/42 [Left] O2 Sat by Pulse 99 99 100 Oximetry 02/19/21 08:52 Temperature Pulse Rate Respiratory Rate Blood Pressure [Left] O2 Sat by Pulse 98 Oximetry - Abdomen soft, bowel sounds normal (NT, ND) - Labs 02/19/21 06:11 02/19/21 06:11 Diabetes panel 02/18/21 02/19/21 Range/Units 10:42 06:11 Sodium 135 L 137 (137-145) mmol/L Potassium 4.4 3.7 (3.6-5.0) mmol/L Chloride 100.4 100.2 (98-107) mmol/L Carbon Dioxide 25 26 (22-30) mmol/L BUN 13 11 (7-17) mg/dL Creatinine 0.6 0.7 (0.6-1.2) mg/dL Glucose 95 91 (65-100) mg/dL Calcium 9.4 9.2 (8.4-10.2) mg/dL AST 13 (5-40) units/L ALT 8 (7-56) units/L Alkaline Phosphatase 51 (35-129) units/L Total Protein 7.4 (6.3-8.2) g/dL Albumin 4.3 (3.9-5) g/dL Calcium panel 02/18/21 02/19/21 Range/Units 10:42 06:11 Calcium 9.4 9.2 (8.4-10.2) mg/dL Albumin 4.3 (3.9-5) g/dL Pituitary panel 02/18/21 02/19/21 Range/Units 10:42 06:11 Sodium 135 L 137 (137-145) mmol/L Potassium 4.4 3.7 (3.6-5.0) mmol/L Chloride 100.4 100.2 (98-107) mmol/L Carbon Dioxide 25 26 (22-30) mmol/L BUN 13 11 (7-17) mg/dL Creatinine 0.6 0.7 (0.6-1.2) mg/dL Glucose 95 91 (65-100) mg/dL Calcium 9.4 9.2 (8.4-10.2) mg/dL Adrenal panel 02/18/21 02/19/21 Range/Units 10:42 06:11 Sodium 135 L 137 (137-145) mmol/L Potassium 4.4 3.7 (3.6-5.0) mmol/L Chloride 100.4 100.2 (98-107) mmol/L Carbon Dioxide 25 26 (22-30) mmol/L BUN 13 11 (7-17) mg/dL Creatinine 0.6 0.7 (0.6-1.2) mg/dL Glucose 95 91 (65-100) mg/dL Calcium 9.4 9.2 (8.4-10.2) mg/dL Total Bilirubin 0.30 (0.1-1.2) mg/dL AST 13 (5-40) units/L ALT 8 (7-56) units/L Alkaline Phosphatase 51 (35-129) units/L Total Protein 7.4 (6.3-8.2) g/dL Albumin 4.3 (3.9-5) g/dL
--- NOTE | 2021-02-19 11:50 | Discharge Summary ---
Providers - Providers Date of Admission: 02/18/21 14:19 Attending physician: AMANDA GARCIA 02/18/21 13:35 Consult to Physician [CONS] Routine Comment: Consulting Provider: TURNER JACKSON Physician Instructions: Reason For Exam: appendicitis Primary care physician: COMMUTATOR ASSEMBLER Hospitalization Condition: Fair Hospital course: 25 YO Female with Mild Intermittent Asthma, Nicotine Dependence presents ED for evaluation of abdominal pain over past 2 weeks. Patient states that pain is 6/10, constant, awoke her from sleep this morning, localized to the right lower quadrant. Patient denies exacerbating or alleviating factors. PPatient seen and evaluated in the emergency department. All lab and imaging studies reviewed. Patient underwent CT scan of the abdomen and pelvis which is suspicious for acute appendicitis, with concomitant diagnosis of ruptured ovarian cyst. Patient admitted to medical floor due to increased risk of worsening symptoms. Surgery was consulted and evaluated the patient. According to general surgeon acute appendicitis is less likely. Patient was able to tolerate diet, denied any nausea vomiting. Patient was then discharged home in stable condition with outpatient follow-up. Disposition: 01 HOME / SELF CARE / HOMELESS Final Discharge Diagnosis (Prints w/discharge instructions): --RLQ abdominal pain. --Ruptured ovarian cyst. --Tobacco abuse Time spent for discharge: 34 minutes Core Measure Documentation - Palliative Care Palliative Care/ Comfort Measures: Not Applicable - Core Measures Any of the following diagnoses?: none Exam - Physical Exam Narrative exam: GENERAL: well-developed and well-nourished female lying on bed appeared to be in no discomfort. HEENT: Normocephalic. Atraumatic. No conjunctival congestion or icterus. Patient has moist mucous membranes. NECK: Supple. Trachea midline. CHEST/LUNGS: Clear to auscultated bilaterally, breathing nonlabored. No wheezes crackles or rhonchi. HEART/CARDIOVASCULAR: Regular in rate and rhythm. S1 and S2 positive. ABDOMEN: Abdomen is soft, nontender. Patient has normal bowel sounds. SKIN: There is no rash. Warm and dry. NEURO: No focal motor deficit. Follows command. MUSCULOSKELETAL: No joint effusion or tenderness. EXTRIMITY: No edema, no cyanosis or clubbing. PSYCH: Cooperative. - Constitutional Vitals: Temp Pulse Resp BP Pulse Ox 98.3 F 68 16 92/42 98 02/19/21 05:29 02/19/21 05:29 02/19/21 05:29 02/19/21 05:29 02/19/21 08:52 Plan Activity: advance as tolerated Weight Bearing Status: Weight Bear as Tolerated Diet: low fat Follow up with: PRIMARY MD FEDERICO [Primary Care Provider] - 7 Days TURNER JACKSON MD [Staff Physician] - 7 Days
[2021-02-19 12:45] VITALS: BP 115/70
== END 2021-02-19 15:15 | disposition home or self-care (01) ==
LOC: ED 08:49 → 3A 14:19
PROVIDERS: ADMIT Internal Medicine; ATTEND Internal Medicine
DX: K35.80 Unspecified acute appendicitis (principal); N83.201 Unspecified ovarian cyst, right side; J45.909 Unspecified asthma, uncomplicated; F17.213 Nicotine dependence, cigarettes, with withdrawal; Z98.891 History of uterine scar from previous surgery
CPT/HCPCS: 36415; 74177; 80048; 80076; 81001; 83690; 84703; 85025; 96361; 96365; 96366; 96375; 96376; 99285; G0378; J1170; J2270; J2405; J2543; J7030; Q9967

== ENCOUNTER 2021-04-17 10:53 | Emergency (ER) | payer MEDICAID ==
[2021-04-17 12:00] VITALS: BP 103/59
--- NOTE | 2021-04-17 12:00 | Emergency Department Report ---
ED ENT HPI - General Chief complaint: Dental/Oral Stated complaint: DENTAL PAIN Time Seen by Provider: 04/17/21 11:08 Source: patient Mode of arrival: Ambulatory Limitations: No Limitations - History of Present Illness Initial comments: 25-year-old female with no significant past medical history presents to the ER today with complaints of dental pain to the left lower jaw. Patient admits that she has a bad tooth in that area. She states that she does have a dental appointment for next Sunday, but the reason why she came in is because she cannot tolerate the pain. She has been taking Tylenol without relief. She states that she is unable to take ibuprofen because it makes her swell. She reports swelling to the left lower jaw. She denies any difficulty breathing, trismus, drooling or any additional symptoms at this time. MD complaint: tooth pain -: days(s) (3) - Related Data Previous Rx's Medication Instructions Recorded Last Taken Type HYDROcodone/APAP 5-325 [[place] 1 each PO Q4HR PRN #10 tablet 04/17/21 Unknown Rx 5/325] Lidocaine 2% Uroject [Xylocaine 2% 10 ml MM QID #30 jelly.appl 04/17/21 Unknown Rx Urojet] Penicillin V Potassium 500 mg PO QID #40 tablet 04/17/21 Unknown Rx Allergies Allergy/AdvReac Type Severity Reaction Status Date / Time codeine Allergy Swelling Verified 09/09/20 12:00 ibuprofen Allergy Swelling Verified 09/09/20 12:00 tramadol Allergy Swelling Verified 09/09/20 12:00 Latex, Natural Rubber AdvReac Anaphylaxis Verified 09/09/20 12:00 ED Dental HPI - General Chief complaint: Dental/Oral Stated complaint: DENTAL PAIN Time Seen by Provider: 04/17/21 11:08 Source: patient Mode of arrival: Ambulatory Limitations: No Limitations - Related Data Previous Rx's Medication Instructions Recorded Last Taken Type HYDROcodone/APAP 5-325 [[place] 1 each PO Q4HR PRN #10 tablet 04/17/21 Unknown Rx 5/325] Lidocaine 2% Uroject [Xylocaine 2% 10 ml MM QID #30 jelly.appl 04/17/21 Unknown Rx Urojet] Penicillin V Potassium 500 mg PO QID #40 tablet 04/17/21 Unknown Rx Allergies Allergy/AdvReac Type Severity Reaction Status Date / Time codeine Allergy Swelling Verified 09/09/20 12:00 ibuprofen Allergy Swelling Verified 09/09/20 12:00 tramadol Allergy Swelling Verified 09/09/20 12:00 Latex, Natural Rubber AdvReac Anaphylaxis Verified 09/09/20 12:00 ED Review of Systems ROS: Stated complaint: DENTAL PAIN Other details as noted in HPI Comment: All other systems reviewed and negative Constitutional: denies: chills, fever ENT: dental pain Respiratory: denies: cough, shortness of breath, SOB with exertion, SOB at rest, wheezing Cardiovascular: denies: chest pain, palpitations, dyspnea on exertion, edema, syncope, paroxysmal nocturnal dyspnea Gastrointestinal: denies: abdominal pain, nausea, vomiting, diarrhea, constipation, hematemesis, hematochezia, other Genitourinary: denies: urgency, dysuria, frequency, hematuria, discharge, ab normal menses, dyspareunia Musculoskeletal: denies: back pain, joint swelling, arthralgia Skin: denies: rash, lesions, change in color, change in hair/nails Neurological: denies: headache, weakness, numbness, paresthesias, confusion, abnormal gait, vertigo Psychiatric: denies: anxiety, depression, auditory hallucinations, visual hallucinations, homicidal thoughts, suicidal thoughts Hematological/Lymphatic: denies: easy bleeding, easy bruising, swollen glands ED Past Medical Hx - Past Medical History Previous Medical History?: Yes Hx Hypertension: No Hx Congestive Heart Failure: No Hx Diabetes: No Hx Deep Vein Thrombosis: No Hx Renal Disease: No Hx Sickle Cell Disease: No Hx Seizures: No Hx Asthma: Yes Hx COPD: No Hx HIV: No - Surgical History Past Surgical History?: Yes Additional Surgical History: 3 c-sections - Social History Smoking Status: Current Some Day Smoker - Medications Home Medications: Home Medications Medication Instructions Recorded Confirmed Last Taken Type HYDROcodone/APAP 5-325 [[place] 1 each PO Q4HR PRN #10 tablet 04/17/21 Unknown Rx 5/325] Lidocaine 2% Uroject [Xylocaine 2% 10 ml MM QID #30 jelly.appl 04/17/21 Unknown Rx Urojet] Penicillin V Potassium 500 mg PO QID #40 tablet 04/17/21 Unknown Rx ED Physical Exam - General Limitations: No Limitations General appearance: alert, in no apparent distress - Head Head exam: Present: atraumatic, normocephalic, normal inspection - Eye Eye exam: Present: normal appearance, PERRL, EOMI Pupils: Present: normal accommodation - ENT ENT exam: Present: mucous membranes moist - Expanded ENT Exam Expanded Mouth exam: Present: normal external inspection 1 - Fractured (Moderate), Dental Tenderness (Severe), Other (Mild gingival swelling) Throat exam: Positive: normal inspection - Neck Neck exam: Present: normal inspection, full ROM, lymphadenopathy. Absent: meningismus - Respiratory Respiratory exam: Present: normal lung sounds bilaterally - Cardiovascular Cardiovascular Exam: Present: regular rate - Neurological Exam Neurological exam: Present: alert, oriented X3, CN II-XII intact, normal gait - Psychiatric Psychiatric exam: Present: normal affect, normal mood ED Course Vital Signs 04/17/21 10:58 Temperature 98.0 F Pulse Rate 78 Respiratory 18 Rate Blood Pressure 103/59 O2 Sat by Pulse 98 Oximetry Critical care attestation.: If time is entered above; I have spent that time in minutes in the direct care of this critically ill patient, excluding procedure time. ED Disposition Clinical Impression: Pain due to dental caries Disposition: 01 HOME / SELF CARE / HOMELESS Is pt being admited?: No Does the pt Need Aspirin: No Condition: Stable Instructions: Dental Caries, Pediatric Additional Instructions: Recommend that you keep your appointment with your dentist for next Sunday. I do recommend that you get the penicillin filled, and take it to completion. I do recommend that you also take the hydrocodone and also the lidocaine gel to help with pain. Return to the ER if your symptoms changes or worsens in any way. Prescriptions: HYDROcodone/APAP 5-325 [[place] 5/325] 1 each PO Q4HR PRN #10 tablet PRN Reason: Pain Penicillin V Potassium 500 mg PO QID #40 tablet Lidocaine 2% Uroject [Xylocaine 2% Urojet] 10 ml MM QID #30 jelly.appl Referrals: PRIMARY CARE,MD [Primary Care Provider] - 3-5 Days Time of Disposition: 12:08
== END 2021-04-17 13:00 | disposition home or self-care (01) ==
LOC: ED 10:53
DX: K02.9 Dental caries, unspecified (principal); Z88.5 Allergy status to narcotic agent; Z88.6 Allergy status to analgesic agent; Z91.040 Latex allergy status
CPT/HCPCS: 99281

== ENCOUNTER 2021-05-13 04:03 | Emergency (ER) | payer MEDICAID ==
[2021-05-13 04:17] VITALS: BP 136/80
--- NOTE | 2021-05-13 06:16 | Emergency Department Report ---
ED ENT HPI - General Chief complaint: Dental/Oral Stated complaint: TOOTH PAIN Time Seen by Provider: 05/13/21 06:08 Source: patient, EMS Mode of arrival: Ambulatory Limitations: No Limitations - History of Present Illness Initial comments: Patient presents with a 1 day history of right mandibular swelling. She has had a sore tooth for about a week now. There has been no fever or chills associated with this but there is no trauma. Pain is a constant and aching pain. She describes it as severe. This is localized to the right mandibular area. She states she has had dental problems before but nothing like this. Patient has not been on antibiotics lately. She has no fevers or chills but there is no cough congestion. There is no vomiting or diarrhea. Patient states her tooth was not temperature sensitive prior to the onset of pain and swelling. - Related Data Previous Rx's Medication Instructions Recorded Last Taken Type Lidocaine 2% Uroject [Xylocaine 2% 10 ml MM QID #30 jelly.appl 04/17/21 Unknown Rx Urojet] HYDROcodone/APAP 5-325 [[place] 1 each PO Q6HR PRN #12 tablet 05/13/21 Unknown Rx 5-325 mg TAB] Penicillin V Potassium 500 mg PO QID #40 tablet 05/13/21 Unknown Rx Allergies Allergy/AdvReac Type Severity Reaction Status Date / Time codeine Allergy Swelling Verified 09/09/20 12:00 ibuprofen Allergy Swelling Verified 09/09/20 12:00 tramadol Allergy Swelling Verified 09/09/20 12:00 Latex, Natural Rubber AdvReac Anaphylaxis Verified 09/09/20 12:00 ED Dental HPI - General Chief complaint: Dental/Oral Stated complaint: TOOTH PAIN Time Seen by Provider: 05/13/21 06:08 Source: patient, EMS Mode of arrival: Ambulatory Limitations: No Limitations - Related Data Previous Rx's Medication Instructions Recorded Last Taken Type Lidocaine 2% Uroject [Xylocaine 2% 10 ml MM QID #30 jelly.appl 04/17/21 Unknown Rx Urojet] HYDROcodone/APAP 5-325 [[place] 1 each PO Q6HR PRN #12 tablet 05/13/21 Unknown Rx 5-325 mg TAB] Penicillin V Potassium 500 mg PO QID #40 tablet 05/13/21 Unknown Rx Allergies Allergy/AdvReac Type Severity Reaction Status Date / Time codeine Allergy Swelling Verified 09/09/20 12:00 ibuprofen Allergy Swelling Verified 09/09/20 12:00 tramadol Allergy Swelling Verified 09/09/20 12:00 Latex, Natural Rubber AdvReac Anaphylaxis Verified 09/09/20 12:00 ED Review of Systems ROS: Stated complaint: TOOTH PAIN Other details as noted in HPI Comment: All other systems reviewed and negative Constitutional: denies: fever Eyes: denies: vision change ENT: as per HPI Respiratory: denies: cough Cardiovascular: denies: chest pain Endocrine: denies: unexplained weight gain, unexplained weight loss Gastrointestinal: denies: abdominal pain Genitourinary: denies: dysuria Musculoskeletal: denies: back pain Skin: denies: rash Hematological/Lymphatic: denies: easy bruising ED Past Medical Hx - Past Medical History Hx Hypertension: No Hx Congestive Heart Failure: No Hx Diabetes: No Hx Deep Vein Thrombosis: No Hx Renal Disease: No Hx Sickle Cell Disease: No Hx Seizures: No Hx Asthma: Yes Hx COPD: No Hx HIV: No - Surgical History Additional Surgical History: 3 c-sections - Family History Family history: no significant - Social History Smoking Status: Current Some Day Smoker - Medications Home Medications: Home Medications Medication Instructions Recorded Confirmed Last Taken Type Lidocaine 2% Uroject [Xylocaine 2% 10 ml MM QID #30 jelly.appl 04/17/21 Unknown Rx Urojet] HYDROcodone/APAP 5-325 [[place] 1 each PO Q6HR PRN #12 tablet 05/13/21 Unknown Rx 5-325 mg TAB] Penicillin V Potassium 500 mg PO QID #40 tablet 05/13/21 Unknown Rx ED Physical Exam - General Limitations: No Limitations, Other (Pulse ox noted and normal) General appearance: alert, in no apparent distress - Head Head exam: Present: atraumatic, other (Right mandibular swelling with tende rness. There is no focal induration or crepitus. There is no discrete abscess noted.) - Eye Eye exam: Present: normal appearance, EOMI - ENT ENT exam: Present: mucous membranes moist, normal external ear exam, other (There is dentalgia with palpation over the right first lower molar. There is no gingival erythema or exudate) - Neck Neck exam: Present: normal inspection, lymphadenopathy (Right anterior cervical). Absent: meningismus - Respiratory Respiratory exam: Present: normal lung sounds bilaterally, respiratory distress - Cardiovascular Cardiovascular Exam: Present: regular rate, normal rhythm - Extremities Exam Extremities exam: Present: normal capillary refill - Back Exam Back exam: Present: full ROM - Neurological Exam Neurological exam: Present: alert, oriented X3, normal gait. Absent: motor sensory deficit - Psychiatric Psychiatric exam: Present: normal affect, normal mood - Skin Skin exam: Present: warm, dry ED Course Vital Signs 05/13/21 04:16 Temperature 98.4 F Pulse Rate 71 Respiratory 20 Rate Blood Pressure 136/80 [Right] O2 Sat by Pulse 99 Oximetry - Reevaluation(s) Reevaluation #1: 05/13/21 06:14 Patient was discharged ED Medical Decision Making - Medical Decision Making Patient presents with right mandibular swelling and findings consistent with an odontogenic abscess and cellulitis. She certainly does not have a discrete buccal abscess that would warrant I&D. She does not appear to be septic or toxic. Patient has not been on recent antibiotics that would suggest any kind of resistant infection. She is started on antibiotics and analgesics and referred to a dentist. Critical Care Time: No Critical care attestation.: If time is entered above; I have spent that time in minutes in the direct care of this critically ill patient, excluding procedure time. ED Disposition Clinical Impression: Cellulitis of buccal space of mouth, Apical alveolar abscess Disposition: HOME / SELF CARE / HOMELESS Is pt being admited?: No Condition: Stable Instructions: Cellulitis, Adult, Dental Abscess Additional Instructions: Have a soft diet. Do peroxide rinses. Drink plenty of fluids. Return for problems. Follow-up with your regular doctor for recheck. Prescriptions: HYDROcodone/APAP 5-325 [[place] 5-325 mg TAB] 1 each PO Q6HR PRN #12 tablet PRN Reason: Pain Penicillin V Potassium 500 mg PO QID #40 tablet Referrals: PRIMARY CARE, [Primary Care Provider] - 3-5 Days
== END 2021-05-13 06:35 | disposition home or self-care (01) ==
LOC: ED 04:03
DX: K12.2 Cellulitis and abscess of mouth (principal); K04.7 Periapical abscess without sinus; F17.200 Nicotine dependence, unspecified, uncomplicated; Z88.5 Allergy status to narcotic agent; Z88.6 Allergy status to analgesic agent; Z91.040 Latex allergy status
CPT/HCPCS: 99283